=== PATIENT | female | born 1990 | race Hispanic/Latino ===

== ENCOUNTER 2018-06-12 08:19 | Emergency (ER) | payer OTHER ==
--- OUTSIDE RECORDS SUMMARY | 2018-06-12 08:21 | XMS REPORT ---
:1990 Author Organization eClinicalWorks Care Team Providers Name Role Phone Juan Diego Hernandez Provider Role Unavailable Allergies, Adverse Reactions, Alerts Substance Reaction Event Type N.K.D.A. 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
--- NOTE | 2018-06-12 08:56 | ER ---
Nurse's Notes [facility] Name: Halina Escamilla Age: 28 yrs Sex: Female : 1990 Arrival Date: 06/12/2018 Time: 08:22 Bed 25 Private MD: Juan Diego Hernandez Diagnosis: Acute sinusitis Presentation: 06/12 08:35 Presenting complaint: Patient states: Sore throat for 3-4 days, c/o congestion as well. ch no fevers. her son was sick with it first. Transition of care: patient was not received from another setting of care. Onset of symptoms was June 09, 2018. Risk Assessment: Do you want to hurt yourself or someone else? Patient reports no desire to harm self or others. Initial Sepsis Screen: Does the patient meet any 2 criteria? No. Patient's initial sepsis screen is negative. Does the patient have a suspected source of infection? No. Patient's initial sepsis screen is negative. Care prior to arrival: None. 08:35 Method Of Arrival: Ambulatory 08:35 Acuity: RADHA 4 Triage Assessment: 08:36 General: Appears in no apparent distress. uncomfortable, Behavior is cooperative, ch appropriate for age. Pain: Complains of pain in face, right eye, left eye and throat Pain currently is 7 out of 10 on a pain scale. Pain began gradually. EENT: Throat is reddened has patchy exudate has enlarged tonsils bilaterally Reports nasal congestion nasal discharge pain when swallowing. Respiratory: No deficits noted. Derm: No signs and/or symptoms reported regarding the dermatologic system. 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 - Social history:: Smoking status: Patient/guardian denies using tobacco, Patient/guardian denies using alcohol, street drugs. - Ebola Screening: : Patient negative for fever greater than or equal to 101.5 degrees Fahrenheit, and additional compatible Ebola Virus Disease symptoms Patient denies exposure to infectious person Patient denies travel to an Ebola-affected area in the 21 days before illness onset No symptoms or risks identified at this time. Screenin:39 Abuse screen: Denies threats or abuse. Denies injuries from another. Nutritional screening: No deficits noted. Tuberculosis screening: No symptoms or risk factors identified. Fall Risk None identified. Assessment: 08:39 Reassessment: Patient appears in no apparent distress at this time. Respiratory: Airway ch is patent Respiratory effort is even, unlabored, Breath sounds are clear bilaterally. 09:02 Reassessment: Patient appears in no apparent distress at this time. Patient and/or ch family updated on plan of care and expected duration. Pain level reassessed. Patient is alert, oriented x 3, equal unlabored respirations, skin warm/dry/pink. Vital Signs: 08:36 BP 128 / 80; Pulse 97; Resp 16; Temp 98.2; Pulse Ox 99% on R/A; Weight 99.79 kg; Height ch 5 ft. 4 in. (162.56 cm); Pain 7/10; 08:36 Body Mass Index 37.76 (99.79 kg, 162.56 cm) ED Course: 08:22 Patient arrived in ED. ds1 08:22 Juan Diego Hernandez MD is Private Physician. ds1 08:33 Shavon Rankin FNP-C is [facility]. kb 08:33 Jonathan Torrez MD is Attending Physician. kb 08:35 Gretchen Simmons, RADHA is Primary Nurse. ch 08:36 Triage completed. ch 08:36 Arm band placed on left wrist. Patient placed in an exam room, on a stretcher. ch 08:39 No apparent distress. Resting quietly. ch 08:39 Patient has correct armband on for positive identification. Bed in low position. Call light in reach. Side rails up X 1. 08:39 No provider procedures requiring assistance completed. Patient did not have IV access during this emergency room visit. Administered Medications: No medications were administered Outcome: 08:55 Discharge ordered by . kb 09:02 Discharged to home ambulatory, with family. 09:02 Condition: stable 09:02 Discharge instructions given to patient, Instructed on discharge instructions, follow up and referral plans. medication usage, Demonstrated understanding of instructions, follow-up care, medications, Prescriptions given X 1. 09:06 Patient left the ED. Signatures: Shavon Rankin FNP-C FNP-Tad Gretchen Simmons, RN RN ch Valentino, Anne-Marie ds1
--- NOTE | 2018-06-12 08:56 | EDPHYS ---
Physician Documentation [facility] Name: Halina Escamilla Age: 28 yrs Sex: Female : 1990 Arrival Date: 06/12/2018 Time: 08:22 Bed 25 Private MD: Juan Diego Hernandez ED Physician Jonathan Torrez HPI: 06/12 08:51 This 28 yrs old Female presents to ER via Ambulatory with complaints of Sore kb Throat. 08:51 The patient presents with sore throat. The patient describes throat pain as constant. kb Onset: The symptoms/episode began/occurred 3 day(s) ago. Severity of symptoms: At their worst the symptoms were mild, moderate, in the emergency department the symptoms are unchanged. Modifying factors: The symptoms are alleviated by nothing, the symptoms are aggravated by swallowing, Patient's oral intake status: good The patient has had contact with sick. Associated signs and symptoms: Pertinent positives: earache, Sore throat sinus pressure. The patient has not experienced similar symptoms in the past, but family has similar symptoms. The patient has not recently seen a physician. [place]: 08:36 LMP 06/12/2018 ch Historical: - Allergies: 08:36 No Known Allergies; ch - Home Meds: 08:36 None [Active]; ch - PMHx: 08:36 None; ch - PSHx: 08:36 None; ch - Immunization history:: Adult Immunizations up to date, Flu vaccine is not up to date. - Social history:: Smoking status: Patient/guardian denies using tobacco, Patient/guardian denies using alcohol, street drugs. - Ebola Screening: : Patient negative for fever greater than or equal to 101.5 degrees Fahrenheit, and additional compatible Ebola Virus Disease symptoms Patient denies exposure to infectious person Patient denies travel to an Ebola-affected area in the 21 days before illness onset No symptoms or risks identified at this time. ROS: 08:51 Constitutional: Negative for fever, chills, and weight loss, Cardiovascular: Negative kb for chest pain, palpitations, and edema, Respiratory: Negative for shortness of breath, cough, wheezing, and pleuritic chest pain, Abdomen/GI: Negative for abdominal pain, nausea, vomiting, diarrhea, and constipation, MS/Extremity: Negative for injury and deformity, Skin: Negative for injury, rash, and discoloration, Neuro: Negative for headache, weakness, numbness, tingling, and seizure. 08:51 ENT: Positive for ear pain, sinus congestion, sinus pain, sore throat. Exam: 08:51 Constitutional: This is a well developed, well nourished patient who is awake, alert, kb and in no acute distress. Head/Face: Normocephalic, atraumatic. Chest/axilla: Normal chest wall appearance and motion. Nontender with no deformity. No lesions are appreciated. Cardiovascular: Regular rate and rhythm with a normal S1 and S2. No gallops, murmurs, or rubs. Normal PMI, no JVD. No pulse deficits. Respiratory: Lungs have equal breath sounds bilaterally, clear to auscultation and percussion. No rales, rhonchi or wheezes noted. No increased work of breathing, no retractions or nasal flaring. Abdomen/GI: Soft, non-tender, with normal bowel sounds. No distension or tympany. No guarding or rebound. No evidence of tenderness throughout. Skin: Warm, dry with normal turgor. Normal color with no rashes, no lesions, and no evidence of cellulitis. MS/ Extremity: Pulses equal, no cyanosis. Neurovascular intact. Full, normal range of motion. Neuro: Awake and alert, GCS 15, oriented to person, place, time, and situation. Cranial nerves II-XII grossly intact. Motor strength 5/5 in all extremities. Sensory grossly intact. Cerebellar exam normal. Normal gait. 08:51 Head/face: Sinus tenderness, that is moderate, is located over the right ethmoid sinus, left ethmoid sinus, right maxillary sinus and left maxillary sinus. 08:51 ENT: TM's: fluid levels, bilaterally, Posterior pharynx: Airway: normal, no evidence of obstruction, Tonsils: are normal in appearance, Uvula: normal, midline, erythema, that is mild. Vital Signs: 08:36 BP 128 / 80; Pulse 97; Resp 16; Temp 98.2; Pulse Ox 99% on R/A; Weight 99.79 kg; Height ch 5 ft. 4 in. (162.56 cm); Pain 7/10; 08:36 Body Mass Index 37.76 (99.79 kg, 162.56 cm) MDM: 08:34 Patient medically screened. kb 08:51 Data reviewed: vital signs, nurses notes. Data interpreted: Pulse oximetry: on room air kb is 99 %. Interpretation: normal. Counseling: I had a detailed discussion with the patient and/or guardian regarding: the historical points, exam findings, and any diagnostic results supporting the discharge/admit diagnosis, the need for outpatient follow up, a family practitioner, to return to the emergency department if symptoms worsen or persist or if there are any questions or concerns that arise at home. Administered Medications: No medications were administered Disposition: 10:15 Co-signature as Attending Physician, Jonathan Torrez MD. rn Disposition: 06/12/18 08:55 Discharged to Home. Impression: Acute sinusitis. - Condition is Stable. - Discharge Instructions: Sinusitis, Adult, [id number]. - Prescriptions for Prednisone 20 mg Oral Tablet - take 1 tablet by ORAL route once daily for 5 days; 5 tablet. - Medication Reconciliation Form, Thank You Letter, Antibiotic Education, Prescription Opioid Use, Work release form form. - Follow up: Emergency Department; When: As needed; Reason: Worsening of condition. Follow up: Private Physician; When: 2 - 3 days; Reason: Recheck today's complaints, Continuance of care, Re-evaluation by your physician. - Notes: Take an antihistamine with decongestant (zyrtec D, keanu D, or claritin D) and Flonase. Signatures: Shavon Rankin, EARLY CHILDHOOD TEACHER-C EARLY CHILDHOOD TEACHER-Gretchen Prasad RN RN Jonathan Hernandez MD MD awake overnight counselor: (The following items were deleted from the chart) 09:06 08:55 06/12/2018 08:55 Discharged to Home. Impression: Acute sinusitis. Condition is ch Stable. Forms are Medication Reconciliation Form, Thank You Letter, Antibiotic Education, Prescription Opioid Use. Follow up: Emergency Department; When: As needed; Reason: Worsening of condition. Follow up: Private Physician; When: 2 - 3 days; Reason: Recheck today's complaints, Continuance of care, Re-evaluation by your physician. kb
== END 2018-06-12 09:06 | disposition home or self-care (01) ==
LOC: ER 08:19
DX: J01.90 Acute sinusitis, unspecified (principal)
CPT/HCPCS: 99282

== ENCOUNTER 2019-08-01 18:10 | Emergency (ER) | payer OTHER ==
[2019-08-01 18:44] LABS: Urine Blood NEGATIVE (NEG); Urine Glucose NEGATIVE (NEG); Urine Protein NEGATIVE (NEG); Urine Specific Gravity <1.005 (1.005-1.030); Urine pH 6.5 (5.0-7.0)
[2019-08-01 18:45] LABS: Absolute Lymphocytes (CBC) 4.8 K/uL (0.7-4.9); Basophils % 0.4 % (0-1.3); Hematocrit 38.3 % (36.0-45.0); Lymphocytes % 34.6 % (15.3-44.8); MPV 8.8 fL (7.6-11.3)
[2019-08-01 18:51] LABS: Urine Bacteria NONE SEEN /HPF (<20); Urine Culture Reflex Order NOT NEEDED; Urine RBC NONE SEEN /HPF (NONE SEEN)
[2019-08-01 19:01] LABS: ALT/SGPT 91 U/L (12-78); AST/SGOT 47 U/L (15-37); Albumin 3.8 g/dL (3.4-5.0); Alkaline Phosphatase 105 U/L (45-117); BUN Blood Urea Nitrogen 8 mg/dL (7-18); Bicarbonate 28 mmol/L (21-32); Bilirubin Direct 0.1 mg/dL (0-0.2); Bilirubin Total 0.3 mg/dL (0.2-1.0); Glucose Level 89 mg/dL (74-106); Lipase 170 U/L (73-393); Potassium 3.8 mmol/L (3.5-5.1); Protein, Total 7.8 g/dL (6.4-8.2); Sodium Level 143 mmol/L (136-145)
[2019-08-01] MEDS ORDERED: NA CHLORIDE 0.9% 1,000 ML ONE (19:20)
[2019-08-01] MEDS ORDERED: FENTANYL CITR 100 MCG/2 ML ONE (19:20)
--- NOTE | 2019-08-01 20:30 | RAD REPORT ---
EXAM DESCRIPTION: CTAbdomen Pelvis W Contrast - 08/01/2019 8:14 pm CLINICAL HISTORY: Abdominal pain. ABD PAIN COMPARISON: <Comparisons> TECHNIQUE: Biphasic CT imaging of the abdomen and pelvis was performed with 100 ml non-ionic IV cont rast. All CT scans are performed using dose optimization technique as appropriate and may include automated exposure control or mA/KV adjustment according to patient size. FINDINGS: The lung bases are clear. The liver is diffusely fatty. The spleen, pancreas, adrenal glands and kidneys are within normal limi ts. No bowel obstruction, free air, intra-abdominal free fluid or abscess. Trace pelvic free fluid. The a ppendix is normal. No evidence of significant lymphadenopathy. No suspicious bony findings. IMPRESSION: No acute intra-abdominal or pelvic finding. Fatty liver.
--- NOTE | 2019-08-01 20:46 | EDPHYS ---
Physician Documentation [facility] Name: Halina Escamilla Age: 29 yrs Sex: Female : 1990 Arrival Date: 08/01/2019 Time: 18:12 Bed 24 Private MD: ED Physician Larry Durán HPI: 08/01 20:20 This 29 yrs old Female presents to ER via Ambulatory with complaints of snw Shortness Of Breath, Abdominal Pain. 20:20 The patient has shortness of breath at rest. Onset: The symptoms/episode began/occurred snw suddenly, 2 month(s) ago, and became persistent. Duration: The symptoms are continuous. The patient's shortness of breath has no apparent modifying factors. Associated signs and symptoms: Pertinent positives: nausea, Pertinent negatives: fever, vomiting. Severity of symptoms: At their worst the symptoms were moderate. It is unknown whether or not the patient has had similar symptoms in the past. The patient has been recently seen by a physician: the patient's primary care provider, with similar presenting complaints, lab tests were done. 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 - Social history:: Smoking status: Patient/guardian denies using tobacco. - Ebola Screening: : Patient denies exposure to infectious person Patient denies travel to an Ebola-affected area in the 21 days before illness onset. ROS: 20:19 Constitutional: Negative for fever, chills, and weight loss, Eyes: Negative for injury, snw pain, redness, and discharge, ENT: Negative for injury, pain, and discharge, Neck: Negative for injury, pain, and swelling, Cardiovascular: Negative for chest pain, palpitations, and edema, Respiratory: Negative for shortness of breath, cough, wheezing, and pleuritic chest pain, Back: Negative for injury and pain, : Negative for injury, bleeding, discharge, and swelling, MS/Extremity: Negative for injury and deformity, Skin: Negative for injury, rash, and discoloration, Neuro: Negative for headache, weakness, numbness, tingling, and seizure, Psych: Negative for depression, anxiety, suicide ideation, homicidal ideation, and hallucinations. 20:19 Abdomen/GI: Positive for abdominal pain, nausea, Negative for vomiting, diarrhea. Exam: 20:19 Constitutional: This is a well developed, well nourished patient who is awake, alert, snw and in no acute distress. Head/Face: Normocephalic, atraumatic. Eyes: Pupils equal round and reactive to light, extra-ocular motions intact. Lids and lashes normal. Conjunctiva and sclera are non-icteric and not injected. Cornea within normal limits. Periorbital areas with no swelling, redness, or edema. ENT: Nares patent. No nasal discharge, no septal abnormalities noted. Tympanic membranes are normal and external auditory canals are clear. Oropharynx with no redness, swelling, or masses, exudates, or evidence of obstruction, uvula midline. Mucous membranes moist. Neck: Trachea midline, no thyromegaly or masses palpated, and no cervical lymphadenopathy. Supple, full range of motion without nuchal rigidity, or vertebral point tenderness. No Meningismus. Chest/axilla: Normal chest wall appearance and motion. Nontender with no deformity. No lesions are appreciated. Cardiovascular: Regular rate and rhythm with a normal S1 and S2. No gallops, murmurs, or rubs. Normal PMI, no JVD. No pulse deficits. Respiratory: Lungs have equal breath sounds bilaterally, clear to auscultation and percussion. No rales, rhonchi or wheezes noted. No increased work of breathing, no retractions or nasal flaring. Back: No spinal tenderness. No costovertebral tenderness. Full range of motion. Skin: Warm, dry with normal turgor. Normal color with no rashes, no lesions, and no evidence of cellulitis. MS/ Extremity: Pulses equal, no cyanosis. Neurovascular intact. Full, normal range of motion. Neuro: Awake and alert, GCS 15, oriented to person, place, time, and situation. Cranial nerves II-XII grossly intact. Motor strength 5/5 in all extremities. Sensory grossly intact. Cerebellar exam normal. Normal gait. Psych: Awake, alert, with orientation to person, place and time. Behavior, mood, and affect are within normal limits. 20:19 Abdomen/GI: Inspection: obese Bowel sounds: diminished, in all quadrants, Palpation: moderate abdominal tenderness, in the left upper quadrant. Vital Signs: 18:28 BP 108 / 77; Pulse 92; Resp 16; Temp 97.8(O); Pulse Ox 99% ; lt1 20:08 BP 115 / 87; Pulse 90; Resp 18; Pulse Ox 100% on R/A; mg2 21:12 BP 110 / 73; Pulse 89; Resp 18; Temp 98.5; Pulse Ox 100% on R/A; Pain 1/10; mg2 MDM: 18:30 Patient medically screened. snw 20:47 Data reviewed: vital signs, nurses notes. Data interpreted: Pulse oximetry: on room air snw is 100 %. Interpretation: normal. Counseling: I had a detailed discussion with the patient and/or guardian regarding: the historical points, exam findings, and any diagnostic results supporting the discharge/admit diagnosis, the presence of at least one elevated blood pressure reading (>120/80) during this emergency department visit, lab results, radiology results, the need for outpatient follow up, to return to the emergency department if symptoms worsen or persist or if there are any questions or concerns that arise at home. Special discussion: Based on the history and exam findings, there is no indication for further emergent testing or inpatient evaluation. I discussed with the patient/guardian the need to see the rn intern for further evaluation of the symptoms. I discussed with the patient/guardian the need to see the primary care provider for further evaluation of the symptoms. 08/01 18: Order name: Basic Metabolic Panel; Complete Time: 19:02 mg2 08/01 18: Order name: CBC with Diff; Complete Time: 19:00 mg2 08/01 18: Order name: Creatinine for Radiology; Complete Time: 19:02 mg2 08/01 18: Order name: Hepatic Function; Complete Time: 19:02 mg2 08/01 18: Order name: Lipase; Complete Time: 19: mg2 08/01 18: Order name: Urine Microscopic Only; Complete Time: 18:53 snw 08/01 18:29 Order name: IV Saline Lock; Complete Time: 18:31 mg2 08/01 18:29 Order name: Labs collected and sent; Complete Time: 18:31 mg2 08/01 18:31 Order name: CT Abd/Pelvis - PO and IV Contrast; Complete Time: 20:44 snw 08/01 18:39 Order name: Urine Dipstick--Ancillary (enter results); Complete Time: 18:45 eb 08/01 18:40 Order name: Test, Serum; Complete Time: 19:15 mg2 08/01 18:31 Order name: Urine Test (obtain specimen); Complete Time: 18:38 snw 08/01 18:31 Order name: Urine Dipstick-Ancillary (obtain specimen); Complete Time: 18:38 snw Administered Medications: 19:24 Drug: fentaNYL (PF) 50 mcg Route: IVP; Site: right antecubital; mg2 20:54 Follow up: Response: No adverse reaction; Pain is decreased mg2 19:24 Drug: NS 0.9% 1000 ml Route: IV; Rate: 125 ml/hr; Site: right antecubital; mg2 21:11 Follow up: Response: No adverse reaction; IV Status: Order to discontinue infusion; IV mg2 Intake: 250ml 20:54 Drug: ProTONIX 40 mg Route: IVP; Site: right antecubital; mg2 21:11 Follow up: Response: No adverse reaction; Medication administered at discharge. mg2 Disposition: 08/02 15:23 Co-signature as Attending Physician, Larry Durán MD. gs Disposition: 08/01/19 20:45 Discharged to Home. Impression: Upper abdominal pain, unspecified. - Condition is Stable. - Discharge Instructions: Abdominal Pain, Adult, Peptic Ulcer, Rehydration, Adult. - Prescriptions for Carafate 1 gram Oral Tablet - take 1 tablet by ORAL route 4 times per day take on an empty stomach, beginning on waking and last dose at bedtime; 100 tablet. - Medication Reconciliation Form, Thank You Letter, Antibiotic Education, Prescription Opioid Use form. - Follow up: Private Physician; When: 1 - 2 days; Reason: Recheck today's complaints, Continuance of care, Re-evaluation by your physician. Follow up: Emergency Department; When: As needed; Reason: Worsening of condition. Signatures: Dispatcher [employer] EDMS Shanita Kaye, TELEPHONE BETTING CLERK-C TELEPHONE BETTING CLERK-Csnw Jessenia Blank RN RN ss Larry Durán MD MD Kunal Alicea RN RN mg2 Corrections: (The following items were deleted from the chart) 08/01 18:46 18:31 Home Meds: None; mg2 mg2 18:46 18:31 PMHx: None; mg2 mg2 21:13 20:45 08/01/2019 20:45 Discharged to Home. Impression: Upper abdominal pain, mg2 unspecified. Condition is Stable. Forms are Medication Reconciliation Form, Thank You Letter, Antibiotic Education, Prescription Opioid Use. Follow up: Private Physician; When: 1 - 2 days; Reason: Recheck today's complaints, Continuance of care, Re-evaluation by your physician. Follow up: Emergency Department; When: As needed; Reason: Worsening of condition. snw
--- NOTE | 2019-08-01 20:46 | ER ---
Nurse's Notes [facility] Name: Halina Escamilla Age: 29 yrs Sex: Female : 1990 Arrival Date: 08/01/2019 Time: 18:12 Bed 24 Private MD: Diagnosis: Upper abdominal pain, unspecified Presentation: 08/01 18:15 Presenting complaint: Patient states: Episodic LUQ pain that began 1 month ago. Patient ss reports she has been back and forward with her doctor with labs and different prescriptions that do not seem to be helping. Transition of care: patient was not received from another setting of care. Onset of symptoms is unknown. Risk Assessment: Do you want to hurt yourself or someone else? Patient reports no desire to harm self or others. Initial Sepsis Screen: Does the patient have a suspected source of infection? No. Patient's initial sepsis screen is negative. Care prior to arrival: None. 18:15 Acuity: RADHA 3 ss 18:15 Method Of Arrival: Ambulatory ss 18:22 Initial Sepsis Screen: Does the patient meet any 2 criteria? No. Patient's initial mg2 sepsis screen is negative. Triage Assessment: 18:22 General: Appears in no apparent distress. comfortable. Respiratory: the patient has mg2 mild shortness of breath. Respiratory: Onset: The symptoms/episode began/occurred gradually. 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 - Social history:: Smoking status: Patient/guardian denies using tobacco. - Ebola Screening: : Patient denies exposure to infectious person Patient denies travel to an Ebola-affected area in the 21 days before illness onset. Screenin:20 Abuse screen: Denies threats or abuse. Denies injuries from another. Nutritional mg2 screening: No deficits noted. Tuberculosis screening: No symptoms or risk factors identified. Fall Risk None identified. Assessment: 18:20 General: Appears in no apparent distress. comfortable, Behavior is calm, cooperative. mg2 Pain: Complains of pain in abdomen. Neuro: Level of Consciousness is awake, alert, obeys commands, Oriented to person, place, time, situation. Respiratory: Airway is patent Respiratory effort is even, unlabored, Respiratory pattern is regular, symmetrical, Breath sounds are clear. GI: Reports upper abdominal pain. EENT: No signs and/or symptoms were reported regarding the EENT system. Derm: Skin is intact, is healthy with good turgor, Skin is pink, warm \T\ dry. normal. Musculoskeletal: Circulation, motion, and sensation intact. Capillary refill < 3 seconds. 20:08 Reassessment: patient sent to ct scan. mg2 21:00 Reassessment: Patient appears in no apparent distress at this time. Patient and/or mg2 family updated on plan of care and expected duration. Pain level reassessed. Patient is alert, oriented x 3, equal unlabored respirations, skin warm/dry/pink. Cardiovascular: Rhythm is regular. Vital Signs: 18:28 BP 108 / 77; Pulse 92; Resp 16; Temp 97.8(O); Pulse Ox 99% ; lt1 20:08 BP 115 / 87; Pulse 90; Resp 18; Pulse Ox 100% on R/A; mg2 21:12 BP 110 / 73; Pulse 89; Resp 18; Temp 98.5; Pulse Ox 100% on R/A; Pain 1/10; mg2 ED Course: 18:12 Patient arrived in ED. as 18:15 Arm band placed on right wrist. ss 18:17 Triage completed. ss 18:19 Kunal Alicea, RADHA is Primary Nurse. mg2 18:20 Shanita Kaye FNP-C is PHCP. snw 18:20 Larry Durán MD is Attending Physician. snw 18:22 Patient has correct armband on for positive identification. Pulse ox on. NIBP on. Door mg2 closed. Warm blanket given. 18:22 No provider procedures requiring assistance completed. mg2 18:31 Inserted saline lock: 20 gauge in right antecubital area, using aseptic technique. mg2 Blood collected. 18:33 Oral contrast given. sj 20:14 CT Abd/Pelvis - PO and IV Contrast In Process Unspecified. EDMS 21:12 IV discontinued, intact, bleeding controlled, No redness/swelling at site. Pressure mg2 dressing applied. Administered Medications: 19:24 Drug: fentaNYL (PF) 50 mcg Route: IVP; Site: right antecubital; mg2 20:54 Follow up: Response: No adverse reaction; Pain is decreased mg2 19:24 Drug: NS 0.9% 1000 ml Route: IV; Rate: 125 ml/hr; Site: right antecubital; mg2 21:11 Follow up: Response: No adverse reaction; IV Status: Order to discontinue infusion; IV mg2 Intake: 250ml 20:54 Drug: ProTONIX 40 mg Route: IVP; Site: right antecubital; mg2 21:11 Follow up: Response: No adverse reaction; Medication administered at discharge. mg2 Intake: 21:11 IV: 250ml; Total: 250ml. mg2 Outcome: 20:45 Discharge ordered by . snw 21:13 Discharged to home ambulatory. mg2 21:13 Condition: stable 21:13 Discharge instructions given to patient, Instructed on discharge instructions, follow up and referral plans. medication usage, Demonstrated understanding of instructions, follow-up care, medications, Prescriptions given X 1. 21:13 Patient left the ED. mg2 Signatures: Dispatcher [employer] EDMS Shanita Kaye, MATERIAL WORKER-C MATERIAL WORKER-Jennifer Khan Amelia as Smirch, Shelby, RN RN ss Kunal Alicea RN RN mg2 Lackey, Sheree 1 Corrections: (The following items were deleted from the chart) 18:46 18:31 Home Meds: None; mg2 mg2 18:46 18:31 PMHx: None; mg2 mg2
[2019-08-01] MEDS ORDERED: PANTOPRAZOLE 40 MG INJ ONE (20:50)
[2019-08-01 21:24] VITALS: O2SAT 100
[2019-08-01 21:26] VITALS: BP 110/73; TEMP 98.5
== END 2019-08-01 21:13 | disposition home or self-care (01) ==
LOC: ER 18:10
DX: R10.10 Upper abdominal pain, unspecified (principal); I10 Essential (primary) hypertension; E78.5 Hyperlipidemia, unspecified; E11.9 Type 2 diabetes mellitus without complications
CPT/HCPCS: 96361; 85025; 80048; 36415; 84703; 80076; 83690; 74177; 96375; 96374; 99284; Q9967; C9113; J3010; J7030; 81003; 81015

== ENCOUNTER 2021-04-26 12:33 | Inpatient (IN) | payer BC, OTHER ==
--- OUTSIDE RECORDS SUMMARY | 2021-04-26 12:35 | XMS REPORT | Continuity of Care Document ---
:1990 Author Organization [facility] t Address [address] [place] [address] Care Team Providers Name Role Phone Unavailable Unavailable Unavailable Problems Condition Condition Condition Status Onset Resolution Last Treating Co mments Source Name Details Category Date Date Treatment Clinician Date Body mass Body mass Problem Active [facility] index index [facility] - (BMI) of (BMI) of Memori a 36.0-36.9 36.0-36.9 l in adult in adult Outpat i ent Clinics Sleep Sleep Problem Active [facility] disturbanc disturbanc Malena kes - e e [facility] Essential Essential Problem Active [facility] hypertensi hypertensi Malena kes - on on [facility] Diabetes 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 Medications Ordered Filled Start Stop Current Ordering Indication Dosage Frequency Signature Comments Components Source Medication Medication Date Date Medication? Clinician (SIG) Name Name Gentamicin Gentamicin Yes Juan Diego [address] [facility] Sulfate Sulfate 06-18 David into [facility] - 00:00: affected [facility] 00 eye l [facility] Fluticasone Fluticasone Yes Juan Diego [address] [facility] Propionate Propionate 06-18 David each Malena kes - 00:00: nostril [facility]oria 00 l [facility] Ketotifen Ketotifen Yes Juan Diego [address] [facility] Fumarate Fumarate 06-18 David into [facility] - 00:00: affected [facility]oria 00 eye l Outpati ent Clinics GNP GNP 2018- No Juan Diego [address] [facility] Loratadine- Loratadine- 06-18 David as needed [facility] - D 12HR D 12HR 00:00: 00:00 Memoria 00 :00 l Outpati ent Clinics Lisinopril Lisinopril 2017- Yes Juan Diego [address] [facility] -20 David [facility] - 00:00: Memoria 00 l Outpati ent Clinics Metformin Metformin Yes Juan Diego [address] [facility] HCl HCl David with meals [facility] - [facility] Procedures This patient has no known procedures. Encounters Start End Encounter Admission Attending Care Care Encounter Source Date/Time Date/Time Type Type Clinicians Facility Department ID 2018-06-18 2018-06-18 Outpatient Mir Jasso [id number] [facility] 09:45:00 09:45:00 [facility] Medicine Outpati ent Clinics 2018-06-17 2018-06-17 Outpatient Mir Jasso [id number] [facility] 09:12:00 09:12:00 [facility] Outpati ent Clinics 2018-05-28 2018-05-28 Outpatient Mir Jasso [id number] [facility] 09:15:00 09:15:00 [facility] Results This patient has no known results.
[2021-04-26 13:37] LABS: Urine Blood Negative (Negative); Urine Glucose Negative (Negative); Urine Protein 1+ (Negative); Urine Specific Gravity 1.025 (1.005-1.030)
[2021-04-26 13:56] LABS: Urine Specific Gravity/Preg 1.025 (1.005-1.030)
[2021-04-26 14:04] LABS: Absolute Lymphocytes (CBC) 1.5 K/uL (0.7-4.9); Basophils % 0.5 % (0-1.3); Hematocrit 43.1 % (36.0-45.0); MPV 9.1 fL (7.6-11.3); RBC Red Blood Cell Count 5.52 M/uL (3.86-4.86)
[2021-04-26] MEDS ORDERED: dexAMETHasone 10 MG/ML VIAL ONE (14:04)
[2021-04-26] MEDS ORDERED: NA CHLORIDE 0.9% 1,000 ML ONE (14:08)
[2021-04-26 14:15] LABS: Protime INR 1.1
[2021-04-26 14:23] LABS: ALT/SGPT 77 U/L (12-78); AST/SGOT 29 U/L (15-37); Albumin 2.9 g/dL (3.4-5.0); Alkaline Phosphatase 80 U/L (45-117); BUN Blood Urea Nitrogen 9 mg/dL (7-18); Bicarbonate 22 mmol/L (21-32); Bilirubin Direct 0.2 mg/dL (0-0.2); Bilirubin Total 0.5 mg/dL (0.2-1.0); Ferritin 158.3 ng/mL (8-388); Glucose Level 219 mg/dL (74-106); Magnesium 2.3 mg/dL (1.8-2.4); NT PRO-BNP 16 pg/mL (<125); Potassium 3.6 mmol/L (3.5-5.1); Protein, Total 7.8 g/dL (6.4-8.2); Sodium Level 141 mmol/L (136-145); Troponin (Emerg Dept Use Only) < 0.02 ng/mL (0.0-0.045)
--- NOTE | 2021-04-26 14:37 | RAD REPORT ---
EXAM DESCRIPTION: RAD - Chest Single View - 04/26/2021 2:29 pm CLINICAL HISTORY: COUGH COMPARISON: Chest Pa And Lat (2 Views) dated 05/19/2019 FINDINGS: Moderate bilateral patchy airspace disease scattered throughout the lungs. The heart size is within normal limits.No acute osseous abnormality. No significant pleural effusions or pneumothora x. IMPRESSION: Patchy airspace disease bilaterally concerning for multifocal pneumonia, including Covid -19.
--- NOTE | 2021-04-26 15:01 | RAD REPORT ---
EXAM DESCRIPTION: CT - Chest For Pe Angio - 04/26/2021 2:50 pm CLINICAL HISTORY: SOB COMPARISON: No comparisons FINDINGS: Chest Wall: No suspicious thyroid nodules or pathologic lymphadenopathy. Lungs: Widespread bilateral nodular and consolidative airspace disease. The consolidation is most not able within the dependent aspect of the lungs. Pulmonary arteries: Limited by motion. No definite pulmonary emboli identified. Pleura: No significant effusions or pneumothorax. Mediastinum/jessie: No pathologic lymphadenopathy. Heart: No significant pericardial effusion. Mild enlarged cardiac silhouette. Upper abdomen: Hepatic steatosis. Bones: No acute abnormality. IMPRESSION: 1. Limited by respiratory motion but no convincing evidence of pulmonary emboli. 2. Moderate bilateral airspace disease concerning for multifocal pneumonia, including Covid-19.
--- NOTE | 2021-04-26 15:08 | ER ---
Nurse's Notes [facility] Name: Halina Escamilla Age: 31 yrs Sex: Female : 1990 Arrival Date: 04/26/2021 Time: 12:34 Bed 28 Private MD: Diagnosis: Pneumonia due to SARS-associated coronavirus;Hypoxemia Presentation: 04/26 12:37 Chief complaint: EMS states: Was called out to Pt doctors office due to O2 saturation vg1 at 85% RA; pt is COVID + Pt was given two treatments of Albuterol with dexamethasone 4mg. Pt is currently on 2L NC at 92%. Coronavirus screen: Client denies travel out of the [place] in the last 14 days. Client presents with at least one sign or symptom that may indicate coronavirus-19. Standard/surgical mask placed on the client. Client reports previous positive COVID test result. Date of collection: April 14, 2021. Ebola Screen: Patient negative for fever greater than or equal to 101.5 degrees Fahrenheit, and additional compatible Ebola Virus Disease symptoms. Initial Sepsis Screen: Does the patient meet any 2 criteria? RR > 20 per min. HR > 90 bpm. Yes Does the patient have a suspected source of infection? Yes:. Risk Assessment: Do you want to hurt yourself or someone else? Patient reports no desire to harm self or others. Onset of symptoms was April 14, 2021. 12:37 Method Of Arrival: EMS: [facility] vg1 12:37 Acuity: RADHA 3 vg1 Triage Assessment: 12:49 General: Appears in no apparent distress. uncomfortable, Behavior is calm, cooperative. vg1 Pain: Complains of pain in head Pain currently is 6 out of 10 on a pain scale. Pain began about a week ago. EENT: No signs and/or symptoms were reported regarding the EENT system. Neuro: Level of Consciousness is awake, alert, obeys commands, Oriented to person, place, time, situation. Cardiovascular: Patient's skin is warm and dry. Respiratory: Reports shortness of breath on exertion cough that is productive, Airway is patent Respiratory effort is even, labored, Respiratory pattern is tachypnea Breath sounds are coarse in right posterior middle lobe. GI: No signs and/or symptoms were reported involving the gastrointestinal system. : No signs and/or symptoms were reported regarding the genitourinary system. Derm: Skin is intact, is healthy with good turgor. Musculoskeletal: Circulation, motion, and sensation intact. 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 - Social history:: Smoking status: Patient denies any tobacco usage or history of. Screenin:51 Abuse screen: Denies threats or abuse. Nutritional screening: No deficits noted. vg1 Tuberculosis screening: No symptoms or risk factors identified. Fall Risk No fall in past 12 months (0 pts). No secondary diagnosis (0 pts). IV access (20 points). Ambulatory Aid- None/Bed Rest/Nurse Assist (0 pts). Gait- Normal/Bed Rest/Wheelchair (0 pts) Mental Status- Oriented to own ability (0 pts). Total Denney Fall Scale indicates No Risk (0-24 pts). Assessment: 12:54 Reassessment: See Triage. vg1 14:01 Reassessment: Patient appears in no apparent distress at this time. No changes from vg1 previously documented assessment. Patient and/or family updated on plan of care and expected duration. Pain level reassessed. Patient is alert, oriented x 3, equal unlabored respirations, skin warm/dry/pink. 14:57 Reassessment: Patient appears in no apparent distress at this time. No changes from vg1 previously documented assessment. Patient and/or family updated on plan of care and expected duration. Pain level reassessed. Patient is alert, oriented x 3, equal unlabored respirations, skin warm/dry/pink. 15:13 Reassessment: Hospitalist at bedside. vg1 Vital Signs: 12:37 BP 126 / 98; Pulse 112; Resp 22; Temp 97.9; Pulse Ox 93% on 2 lpm NC; Weight 92.99 kg; vg1 Height 5 ft. 2 in. (157.48 cm); Pain 6/10; 14:01 BP 131 / 90; Pulse 108; Resp 26; Pulse Ox 93% on 2 lpm NC; vg1 14:31 BP 121 / 74; Pulse 100; Resp 20; Pulse Ox 94% on 2 lpm NC; vg1 14:57 BP 129 / 78; Pulse 104; Resp 24; Pulse Ox 98% on 2 lpm NC; vg1 12:37 Body Mass Index 37.49 (92.99 kg, 157.48 cm) vg1 ED Course: 12:34 Patient arrived in ED. vg1 12:41 Devyn Cruz PA is PHCP. cp 12:41 Jonathan Torrez MD is Attending Physician. cp 12:49 Triage completed. vg1 12:49 Arm band placed on. vg1 12:51 Patient has correct armband on for positive identification. Bed in low position. Call vg1 light in reach. Side rails up X 1. 12:54 Vida Meyer, RN is Primary Nurse. vg1 13:39 Initial lab(s) drawn, by me, sent to lab. EKG done, COVID swab sent to lab. Inserted vg1 saline lock: 20 gauge in left antecubital area, using aseptic technique. Blood collected. 14:29 XRAY Chest (1 view) In Process Unspecified. EDMS 14:51 CT Chest For PE Angio In Process Unspecified. EDMS 15:05 Gato Escamilla is Hospitalizing Provider. cp 17:02 Report given to Mary Anne GARCIA. vg1 17:02 No provider procedures requiring assistance completed. Patient admitted, IV remains in vg1 place. 19:16 Primary Nurse role handed off by Vida Meyer, RN mw2 Administered Medications: 14:00 Drug: NS 0.9% 1000 ml Route: IV; Rate: 1000 ml/hr; Site: left antecubital; vg1 14:01 Drug: Decadron - Dexamethasone 6 mg Route: IVP; Site: left antecubital; vg1 15:18 Follow up: Response: No adverse reaction vg1 Outcome: 15:07 Decision to Hospitalize by Provider. cp 17:02 Admitted to ER Hold. Please see [facility] for further documentation. vg1 17:02 Condition: stable 17:02 Instructed on the need for admit. 04/30 13:01 Patient left the ED. eb Signatures: Dispatcher [employer] EDMS Devyn Cruz PA PA cp Jessica Burr mw2 Lore Paige Victoria, RN RN vg1
--- NOTE | 2021-04-26 15:08 | EDPHYS ---
Physician Documentation [facility] Name: Halina Escamilla Age: 31 yrs Sex: Female : 1990 Arrival Date: 04/26/2021 Time: 12:34 Bed 28 Private MD: ED Physician Jonathan Torrez HPI: 04/26 13:05 This 31 yrs old Female presents to ER via EMS with complaints of Covid + cp Shortness of Breath. 13:05 The patient has shortness of breath at rest. Onset: The symptoms/episode began/occurred cp gradually, and became worse today. 13:05 Duration: The symptoms are continuous, and are steadily getting worse. The patient or cp guardian reports cough, that is constant. Patient reports testing positive for COVID-19 2 weeks ago. RN ENDOSCOPY: 12:55 LMP 04/17/2021 vg1 Historical: - Allergies: 12:49 No Known Allergies; vg1 - PMHx: 12:49 Diabetes - NIDDM; Hyperlipidemia; Hypertension; vg1 - Immunization history:: Adult Immunizations up to date. - Social history:: Smoking status: Patient denies any tobacco usage or history of. ROS: 13:10 Constitutional: Negative for body aches, chills, fever, poor PO intake. cp 13:10 Eyes: Negative for injury, pain, redness, and discharge. cp 13:10 ENT: Negative for ear pain, sore throat, difficulty swallowing, difficulty handling secretions. 13:10 Cardiovascular: Negative for chest pain, edema, palpitations. 13:10 Respiratory: Positive for cough, with no reported sputum, shortness of breath. 13:10 Abdomen/GI: Negative for abdominal pain, nausea, vomiting, and diarrhea. 13:10 Neuro: Positive for headache, Negative for altered mental status, syncope, weakness. 13:10 All other systems are negative. Exam: 13:15 Constitutional: The patient appears alert, awake, non-diaphoretic, non-toxic, well cp developed, well nourished, obese, in obvious distress, mildly distressed. 13:15 Head/Face: Normocephalic, atraumatic. cp 13:15 Eyes: Periorbital structures: appear normal, Conjunctiva: normal, no exudate, no injection, Sclera: no appreciated abnormality, Lids and lashes: appear normal, bilaterally. 13:15 ENT: External ear(s): are unremarkable, Nose: is normal, Mouth: Lips: moist, Oral mucosa: pink and intact, moist, Posterior pharynx: Airway: no evidence of obstruction, patent. 13:15 Neck: ROM/movement: is normal, is supple, no meningismus, no nuchal rigidity. 13:15 Chest/axilla: Inspection: normal, Palpation: is normal, no crepitus, no tenderness. 13:15 Cardiovascular: Rate: normal, Rhythm: regular, Edema: is not appreciated, JVD: is not appreciated. 13:15 Respiratory: mild respiratory distress is noted, Respirations: labored breathing, that is mild, intercostal retractions, are absent, Breath sounds: bronchial sounds, that are moderate, are heard diffusely, stridor, is not appreciated, wheezing: is not appreciated. 13:15 Abdomen/GI: Inspection: abdomen appears normal, Palpation: abdomen is soft and non-tender, in all quadrants. 13:15 Back: pain, is absent, ROM is normal. 13:15 Neuro: Orientation: to person, place \T\ time. Mentation: is normal, Motor: moves all fours, strength is normal. 13:35 ECG was reviewed by the Attending Physician. cp Vital Signs: 12:37 BP 126 / 98; Pulse 112; Resp 22; Temp 97.9; Pulse Ox 93% on 2 lpm NC; Weight 92.99 kg; vg1 Height 5 ft. 2 in. (157.48 cm); Pain 6/10; 14:01 BP 131 / 90; Pulse 108; Resp 26; Pulse Ox 93% on 2 lpm NC; vg1 14:31 BP 121 / 74; Pulse 100; Resp 20; Pulse Ox 94% on 2 lpm NC; vg1 14:57 BP 129 / 78; Pulse 104; Resp 24; Pulse Ox 98% on 2 lpm NC; vg1 12:37 Body Mass Index 37.49 (92.99 kg, 157.48 cm) vg1 MDM: 12:45 Patient medically screened. cp 13:30 Differential diagnosis: bronchitis, flu, pneumonia, Pneumothorax pulmonary edema, cp Pulmonary Embolism Sepsis. 15:06 Data reviewed: vital signs, nurses notes, lab test result(s), EKG, radiologic studies, cp CT scan, plain films. 15:06 Test interpretation: by ED physician or midlevel provider: ECG, plain radiologic cp studies. Counseling: I had a detailed discussion with the patient and/or guardian regarding: the historical points, exam findings, and any diagnostic results supporting the discharge/admit diagnosis, lab results, radiology results, the need for further work-up and treatment in the hospital. Response to treatment: the patient's symptoms have mildly improved after treatment. Physician consultation: Gato Escamilla was contacted at 15:06, regarding admission, to the telemetry unit. patient's condition. 04/26 12:59 Order name: Basic Metabolic Panel cp 04/26 12:59 Order name: CBC with Diff cp 04/26 12:59 Order name: LFT's cp 04/26 12:59 Order name: Magnesium; Complete Time: 14:30 cp 04/26 12:59 Order name: NT PRO-BNP; Complete Time: 14:30 cp 04/26 12:59 Order name: PT-INR; Complete Time: 14:30 cp 04/26 12:59 Order name: Troponin (emerg Dept Use Only); Complete Time: 14:30 cp 04/26 12:59 Order name: CRP; Complete Time: 14:30 cp 04/26 12:59 Order name: Ferritin; Complete Time: 14:30 cp 04/26 12:59 Order name: D-Dimer; Complete Time: 14:30 cp 04/26 12:59 Order name: Basic Metabolic Panel; Complete Time: 14:30 EDMS 04/26 12:59 Order name: CBC with Automated Diff; Complete Time: 14:30 EDMS 04/26 12:59 Order name: Liver (Hepatic) Function; Complete Time: 14:30 EDMS 04/26 13:36 Order name: Urine --Ancillary (enter results); Complete Time: 14:30 mt 04/26 13:37 Order name: Urine Dipstick-Ancillary; Complete Time: 14:30 EDMS 04/26 16:05 Order name: SARS-COV-2 RT PCR EDMI 04/26 18:13 Order name: Glucose, Ancillary Testing EDMI 04/26 19:16 Order name: Lipid Profile EDMI 04/26 19:32 Order name: Procalcitonin EDMI 04/26 19:32 Order name: Glucose, Ancillary Testing EDMI 04/26 22:40 Order name: Lactate EDMI 04/27 06:49 Order name: CBC with Automated Diff EDMS 04/27 06:50 Order name: Comprehensive Metabolic Panel EDMS 04/27 06:50 Order name: C-Reactive Protein EDMS 04/27 06:50 Order name: Magnesium EDMS 04/27 06:50 Order name: Ferritin EDMS 04/27 08:53 Order name: Manual Differential EDMS 04/27 09:01 Order name: Glucose, Ancillary Testing EDMS 04/27 12:02 Order name: Glucose, Ancillary Testing EDMS 04/26 12:59 Order name: XRAY Chest (1 view); Complete Time: 15:05 cp 04/26 12:59 Order name: EKG; Complete Time: 13:00 cp 04/26 14:31 Order name: CT Chest For PE Angio; Complete Time: 15:05 cp 04/27 16:12 Order name: Glucose, Ancillary Testing EDMS 04/27 19:52 Order name: Glucose, Ancillary Testing EDMS 04/28 04:09 Order name: CBC with Automated Diff EDMS 04/28 04:59 Order name: Comprehensive Metabolic Panel EDMS 04/28 04:59 Order name: C-Reactive Protein EDMS 04/28 04:59 Order name: Magnesium EDMS 04/28 04:59 Order name: Ferritin EDMS 04/28 07:52 Order name: Glucose, Ancillary Testing EDMS 04/28 10:32 Order name: C-Reactive Protein EDMS 04/28 10:32 Order name: Ferritin EDMS / 11:22 Order name: Glucose, Ancillary Testing EDMS 04/28 16:05 Order name: Hemoglobin A1c EDMS 04/28 16:22 Order name: Glucose, Ancillary Testing EDMS 04/28 20:56 Order name: Glucose, Ancillary Testing EDMS 04/29 06:19 Order name: C-Reactive Protein EDMS 04/29 06:19 Order name: Ferritin EDMS 04/29 07:55 Order name: Glucose, Ancillary Testing EDMS 04/29 12:08 Order name: Glucose, Ancillary Testing EDMS 04/29 16:51 Order name: Glucose, Ancillary Testing EDMS 04/29 21:16 Order name: Glucose, Ancillary Testing EDMS 04/30 05:45 Order name: CBC with Automated Diff EDMS 04/30 06:27 Order name: Basic Metabolic Panel EDMS 04/30 06:27 Order name: C-Reactive Protein EDMS 04/30 06:27 Order name: Ferritin EDMI 04/30 06:33 Order name: RAD EDMI 04/30 08:04 Order name: Glucose, Ancillary Testing [facility] 04/30 11:57 Order name: Glucose, Ancillary Testing [facility] 04/26 12:59 Order name: Cardiac monitoring; Complete Time: 13:39 cp 04/26 12:59 Order name: EKG - Nurse/Tech; Complete Time: 13:39 cp 04/26 12:59 Order name: IV Saline Lock; Complete Time: 13:39 cp 04/26 12:59 Order name: Labs collected and sent; Complete Time: 13:39 cp 04/26 12:59 Order name: O2 Per Protocol; Complete Time: 13:12 cp 04/26 12:59 Order name: O2 Sat Monitoring; Complete Time: 13:12 cp 04/26 15:19 Order name: Diet Ada 1800 James; Complete Time: 15:20 vg1 EC:35 Rate is 110 beats/min. Rhythm is regular. KS interval is normal. QRS interval is cp normal. QT interval is normal. T waves are Inverted in lead aVR. Interpreted by me. Reviewed by me. Administered Medications: 14:00 Drug: NS 0.9% 1000 ml Route: IV; Rate: 1000 ml/hr; Site: left antecubital; vg1 14:01 Drug: Decadron - Dexamethasone 6 mg Route: IVP; Site: left antecubital; vg1 15:18 Follow up: Response: No adverse reaction vg1 Disposition: 04/30 15:04 Co-signature as Attending Physician, Jonathan Torrez MD. rn Disposition Summary: 04/26/21 15:07 Hospitalization Ordered Hospitalization Status: Inpatient Admission cp Provider: Gato Escamilla cp Condition: Fair cp Problem: new cp Symptoms: have improved cp Bed/Room Type: Standard cp Location: [facility] ER HOLD(04/26/21 16:21) Room Assignment: ERHOLD-(04/26/21 16:21) Diagnosis - Pneumonia due to SARS-associated coronavirus cp - Hypoxemia cp Forms: - Medication Reconciliation Form cp - SBAR form cp Signatures: Dispatcher MedHoJonathan Davis MD MD rn Smirch, Shelby, RN RN ss Devyn Cruz PA PA cp Garcia, Victoria RN RN vg1 Corrections: (The following items were deleted from the chart) 04/26 14:46 13:00 CORONAVIRUS+MR.LAB.BRZ ordered. EDMS EDMS 16: 15:07 Telemetry/MedSurg (Inpatient) cp ss 16: 15:07 cp ss 04/28 00:05 04/26 13:10 Neuro: Negative for altered mental status, headache, syncope, weakness, cp cp
--- NOTE | 2021-04-26 16:32 | P.HP ---
Certification for Inpatient Patient admitted to: Inpatient (home oxygen) With expected LOS: <2 Midnights Patient will require the following post-hospital care: Other (home oxygen) Practitioner: I am a practitioner with admitting privileges, knowledge of patient current condition, hospital course, and medical plan of care. Services: Services provided to patient in accordance with Admission requirements found in Title 42 Section 412.3 of the Code of Federal Regulations Patient History Date of Service: 04/26/21 Primary Care Provider: Dr. Velazquez Reason for admission: dyspnea History of Present Illness: This is a 31 y/o F with HTN, HLD, T2DM, non-compliant, who presents today with 2 weeks of SOB. She was diagnosed with covid-19 on April 14 and was given antibiotics and steroids which she finished last week. She c/o worsening SOB with exertion. She reports minimal relief with albuterol inhaler. She was sent to ER today from PCP office due to oxygen saturation 85%. Her was diagnosed with covid-19 around the same time and is now in the ICU at [facility]. She is not vaccinated. She c/o productive cough and chills. Denies any nausea, vomiting, fever, chest pain. WC 10, CRP 59.30, ferritin 158.3 CTA: 1. Limited by respiratory motion but no convincing evidence of pulmonary emboli. 2. Moderate bilateral airspace disease concerning for multifocal pneumonia, including Covid-19. CXR: Moderate bilateral patchy airspace disease scattered throughout the lungs. The heart size is within normal limits.No acute osseous abnormality. No significant pleural effusions or pneumothorax. IMPRESSION: Patchy airspace disease bilaterally concerning for multifocal pneumonia, including Covid-19. - Past Medical/Surgical History -: HTN -: DM -: HLD Past Surgical History: Patient denies surgical history Psychosocial/ Personal History: lives at home with and son - Family History Mother -: Diabetes Father -: Hypertension, Liver disease - Social History Smoking Status: Former smoker Alcohol use: No CD- Drugs: No Caffeine use: Yes Physical Examination - Physical Exam General: Alert, In no apparent distress, Oriented x3, Cooperative HEENT: Atraumatic, Mucous membr. moist/pink Neck: Supple Respiratory: Crackles/rales, Other (currently on 2L nasal cannula) Cardiovascular: Normal S1 S2, Other (mildly tachycardic) Capillary refill: <2 Seconds Gastrointestinal: Normal bowel sounds, No tenderness, No guarding Musculoskeletal: No swelling, No tenderness Integumentary: No rashes, No breakdown Neurological: Normal speech, Normal tone, Normal affect - Studies Laboratory Data (last 24 hrs) 04/26/21 13:36: PT 12.7 H, INR 1.10 04/26/21 13:36: WBC 10.00, Hgb 14.1, Hct 43.1, Plt Count 475 H 04/26/21 13:36: Sodium 141, Potassium 3.6, BUN 9, Creatinine 0.60, Glucose 219 H, Magnesium 2.3, Total Bilirubin 0.5, AST 29, ALT 77, Alkaline Phosphatase 80 Assessment and Plan - Plan impression: dyspnea, cough secondary to bilateral covid pneumonia with hypoxia, unvaccinated HTN HLD NIDDM plan: dyspnea, cough secondary to bilateral covid pneumonia with hypoxia, unvaccinated : pt will be admitted for further evaluation and management. CT scan unremarkable for PE. imaging consistent with covid pneumonia. trial IV solu- medrol, can consider other meds if condition worsens. tessalon perles prn. start vitamin supplementation including zinc, thiamine, vit d, vit C, pepcid. will continue to reassess. will consult pulm to further evaluate. await further recs. will consult respiratory and social service manager to discharge patient with home oxygen. anticipate improvement over the next 24-48h. HTN: pt does not take home meds. monitor BP closely. HLD: lipid panel ordered. NIDDM: a1c ordered. will start metformin 500 mg. accuchecks and SSI. code: full VTE: lovenox dispo: anticipate dc home in ~24-48h with home oxygen Discharge Plan: Home Plan to discharge in: 48 Hours - Advance Directives Does patient have a Living Will: No Does patient have a Durable POA for Healthcare: No - Code Status/Comfort Care Code Status Assessed: Yes (full)
[2021-04-26] MEDS ORDERED: BENZONATATE 100 MG CAP PO PRN (17:29)
[2021-04-26] MEDS ORDERED: ONDANSETRON 4 MG/2 ML VIAL IV PRN (17:29)
[2021-04-26] MEDS: ASCORBIC ACID 500 MG TABLET PO SCH ×2 (17:29→21:00)
[2021-04-26] MEDS ORDERED: ACETAMINOPHEN 500 MG TAB PO PRN (17:29)
[2021-04-26] MEDS ORDERED: ALBUTEROL 2.5 MG/3 ML NEB SOL NEB PRN (17:29)
[2021-04-26] MEDS: INSULIN -REGULAR HUMAN 50 UNIT/0.5 ML ML SQ SCH ×2 (17:29→21:01)
[2021-04-26] MEDS ORDERED: METHYLPRED NA SUC 60 MG in NA CHLORIDE 0.9% 100 ML IV SCH (17:29)
[2021-04-26] MEDS: ENOXAPARIN 40 MG/0.4 ML SQ SCH (18:00)
[2021-04-26] MEDS: METHYLPREDNISOLONE 125 MG INJ IV SCH (18:00)
[2021-04-26] MEDS ORDERED: INSULIN -REGULAR HUMAN 50 UNIT/0.5 ML ML ONE ×2 (18:27→20:33)
[2021-04-26] MEDS ORDERED: METHYLPREDNISOLONE 125 MG INJ ONE ×2 (18:28→20:36)
[2021-04-26] MEDS ORDERED: ENOXAPARIN 40 MG/0.4 ML SQ ONE (18:28)
[2021-04-26] MEDS ORDERED: ASCORBIC ACID 500 MG TABLET ONE ×2 (18:28→20:37)
[2021-04-26] MEDS ORDERED: IPRATROPIUM BROM 0.5MG/2.5ML ONE (19:50)
[2021-04-26] MEDS ORDERED: IPRATROPIUM BROM 0.5MG/2.5ML NEB SCH (20:00)
[2021-04-26] MEDS ORDERED: FAMOTIDINE 20 MG TAB ONE (20:37)
[2021-04-26] MEDS ORDERED: THIAMINE HCL 100 MG TABLET ONE (20:37)
[2021-04-26] MEDS ORDERED: BENZONATATE 100 MG CAP PO ONE (20:37)
[2021-04-26] MEDS: THIAMINE HCL 100 MG TABLET PO SCH (21:00)
[2021-04-26] MEDS: MELATONIN 5 MG TABLET PO SCH (21:00)
[2021-04-26] MEDS: FAMOTIDINE 20 MG TAB PO SCH (21:00)
[2021-04-26] MEDS ORDERED: MELATONIN 5 MG TABLET PO ONE (21:07)
[2021-04-27] MEDS: METHYLPREDNISOLONE 125 MG INJ IV SCH ×3 (00:33→17:00)
[2021-04-27] MEDS ORDERED: ACETAMINOPHEN 500 MG TAB ONE (01:05)
[2021-04-27 06:17] LABS: Absolute Lymphocytes (CBC) 1.5 K/uL (0.7-4.9); Basophils % 0.6 % (0-1.3); Hematocrit 40.9 % (36.0-45.0); Lymphocytes % 18.7 % (15.3-44.8); MPV 8.9 fL (7.6-11.3); RBC Red Blood Cell Count 5.18 M/uL (3.86-4.86)
[2021-04-27 06:37] LABS: ALT/SGPT 65 U/L (12-78); AST/SGOT 22 U/L (15-37); Albumin 2.5 g/dL (3.4-5.0); Alkaline Phosphatase 77 U/L (45-117); BUN Blood Urea Nitrogen 11 mg/dL (7-18); Bicarbonate 22 mmol/L (21-32); Bilirubin Total 0.4 mg/dL (0.2-1.0); Ferritin 127.4 ng/mL (8-388); Glucose Level 247 mg/dL (74-106); Magnesium 2.3 mg/dL (1.8-2.4); Potassium 4.3 mmol/L (3.5-5.1); Protein, Total 7.1 g/dL (6.4-8.2); Sodium Level 141 mmol/L (136-145)
[2021-04-27 08:53] LABS: Blood Morphology Comment NOT SEEN (NOT SEEN); Platelet Estimate ADEQ
[2021-04-27] MEDS ORDERED: ASCORBIC ACID 500 MG TABLET ONE ×4 (09:28→20:36)
[2021-04-27] MEDS ORDERED: ZINC SULFATE 220 MG CAP ONE (09:28)
[2021-04-27] MEDS ORDERED: VITAMIN D 1000 UNIT TAB ONE ×2 (09:28→10:01)
[2021-04-27] MEDS ORDERED: METFORMIN HCL 500 MG TAB ONE (09:28)
[2021-04-27] MEDS ORDERED: METHYLPREDNISOLONE 40 MG INJ ONE ×2 (09:29→17:14)
[2021-04-27] MEDS ORDERED: ENOXAPARIN 40 MG/0.4 ML SQ ONE (09:29)
[2021-04-27] MEDS ORDERED: FAMOTIDINE 20 MG TAB ONE ×2 (09:29→20:38)
[2021-04-27] MEDS ORDERED: INSULIN -REGULAR HUMAN 50 UNIT/0.5 ML ML ONE ×3 (09:31→17:15)
[2021-04-27] MEDS: THIAMINE HCL 100 MG TABLET PO SCH ×2 (09:36→21:00)
[2021-04-27] MEDS: ZINC SULFATE 220 MG CAP PO SCH (09:36)
[2021-04-27] MEDS: ENOXAPARIN 40 MG/0.4 ML SQ SCH (09:36)
[2021-04-27] MEDS: VITAMIN D 1000 UNIT TAB PO SCH (09:36)
[2021-04-27] MEDS: ASCORBIC ACID 500 MG TABLET PO SCH ×4 (09:37→21:00)
[2021-04-27] MEDS: FAMOTIDINE 20 MG TAB PO SCH ×2 (09:37→21:00)
[2021-04-27] MEDS: METFORMIN HCL 500 MG TAB PO SCH (09:37)
[2021-04-27] MEDS: INSULIN -REGULAR HUMAN 50 UNIT/0.5 ML ML SQ SCH ×4 (09:38→21:00)
[2021-04-27] MEDS ORDERED: THIAMINE HCL 100 MG TABLET ONE (09:46)
--- NOTE | 2021-04-27 12:42 | EKG ---
Test Date: 2021-04-26 Test Time: 13:28:18 Filter Press Supervisor: MACO MEASUREMENT RESULTS: Intervals: Rate: 110 WA: 142 QRSD: 94 QT: 354 QTc: 479 [place]: P: 51 WA: 142 QRS: 90 T: 17 INTERPRETIVE STATEMENTS: Sinus tachycardia Rightward axis Borderline ECG No previous ECG available for comparison Electronically Signed On 04-27-21 12:37:46 CDT by Bhupinder Plummer
[2021-04-27] MEDS: ASPIRIN EC 81 MG TAB PO SCH (18:55)
--- NOTE | 2021-04-27 18:56 | P.CNS ---
Date of Consult: 04/27/21 Reason for Consult: resp failure from COVID Primary Care Provider: Dr. Velazquez Chief Complaint: Resp failure from COVID History of Present Illness: Age 31 with metabolic synd AW resp failure. Doing better/ on high flow . Allergies No Known Allergies Allergy (Unverified 04/26/21 17:28) Home Medications: NK [No Home Meds] 04/26/21 - Past Medical/Surgical History Diabetic: Yes -: HTN -: DM -: HLD Psychosocial/ Personal History: lives at home with and son - Family History Mother Medical History: Diabetes Father Medical History: Hypertension, Liver disease - Social History Alcohol use: No CD- Drugs: No Caffeine use: Yes Place of Residence: Home Review of Systems General: Weakness Respiratory: Shortness of Breath Physical Examination Temp Pulse Resp BP Pulse Ox 98 F 110 H 20 120/70 94 04/27/21 16:00 04/27/21 16:00 04/27/21 16:00 04/27/21 16:00 04/27/21 16:00 - Problems (1) COVID Current Visit: Yes Status: Acute Plan: pt is 31 AW resp failure from COVID. Doign better/ [place] to Ncannula O2 / poss DC am CT scan consistent with covid penumonia/ poss D/c AM/Add aspirin
--- NOTE | 2021-04-27 19:01 | P.PN ---
Subjective Date of Service: 04/27/21 Primary Care Provider: Dr. Velazquez Chief Complaint: Resp failure from COVID Patient now requiring high-flow. She states her breathing is better with the high-flow oxygen on. Physical Examination - Vital Signs Temperature: 98 F Blood Pressure: 120/70 Pulse: 110 Respirations: 20 Pulse Ox (%): 94 - Physical Exam General: Alert, In no apparent distress, Oriented x3 HEENT: Mucous membr. moist/pink Neck: JVD not distended Respiratory: Other (Nonlabored breathing) Cardiovascular: No edema, Regular rate/rhythm, Normal S1 S2 Gastrointestinal: Soft and benign, Non-distended Musculoskeletal: No swelling Integumentary: No rashes Neurological: Normal strength at 5/5 x4 extr Assessment And Plan - Current Problems (Diagnosis) (1) Pneumonia due to COVID-19 virus Current Visit: Yes Status: Acute (2) Acute respiratory failure with hypoxia Current Visit: Yes Status: Acute (3) Type 2 diabetes mellitus Current Visit: Yes Status: Acute (4) Hypertension Current Visit: Yes Status: Acute - Plan Patient now requiring high-flow oxygen. Continue IV steroid. Inhalers as needed. Vitamins supplementation Zinc supplementation. Pulmonary input appreciated. Titrate oxygen. Monitor inflammatory markers.
[2021-04-27] MEDS ORDERED: D50W 25 GM/50 ML SYRINGE IV PRN (19:02)
[2021-04-27] MEDS ORDERED: GLUCAGON 1 MG/VIAL IM PRN (19:02)
[2021-04-27] MEDS ORDERED: ASPIRIN 325 MG TAB ONE (20:37)
[2021-04-27] MEDS ORDERED: BENZONATATE 100 MG CAP PO ONE (20:38)
[2021-04-27] MEDS: MELATONIN 5 MG TABLET PO SCH (21:00)
[2021-04-27] MEDS: INSULIN GLARGINE 100 UNITS/ML SQ SCH (21:00)
[2021-04-28] MEDS: METHYLPREDNISOLONE 125 MG INJ IV SCH ×3 (01:00→16:03)
[2021-04-28] MEDS ORDERED: METHYLPREDNISOLONE 125 MG INJ ONE ×3 (01:22→14:01)
[2021-04-28 04:05] LABS: Absolute Lymphocytes (CBC) 1.7 K/uL (0.7-4.9); Basophils % 0.2 % (0-1.3); Hematocrit 38.3 % (36.0-45.0); Lymphocytes % 12.3 % (15.3-44.8); MPV 9.2 fL (7.6-11.3); RBC Red Blood Cell Count 4.85 M/uL (3.86-4.86)
[2021-04-28 04:57] LABS: ALT/SGPT 53 U/L (12-78); AST/SGOT 16 U/L (15-37); Albumin 2.4 g/dL (3.4-5.0); Alkaline Phosphatase 77 U/L (45-117); BUN Blood Urea Nitrogen 14 mg/dL (7-18); Bicarbonate 26 mmol/L (21-32); Bilirubin Total 0.3 mg/dL (0.2-1.0); Ferritin 96.8 ng/mL (8-388); Glucose Level 328 mg/dL (74-106); Magnesium 2.1 mg/dL (1.8-2.4); Potassium 4.4 mmol/L (3.5-5.1); Protein, Total 6.3 g/dL (6.4-8.2); Sodium Level 140 mmol/L (136-145)
[2021-04-28] MEDS ORDERED: ASPIRIN EC 81 MG TAB PO ONE (07:42)
[2021-04-28] MEDS ORDERED: ZINC SULFATE 220 MG CAP ONE (07:42)
[2021-04-28] MEDS ORDERED: METFORMIN HCL 500 MG TAB ONE (07:42)
[2021-04-28] MEDS ORDERED: THIAMINE HCL 100 MG TABLET ONE (07:42)
[2021-04-28] MEDS ORDERED: ENOXAPARIN 40 MG/0.4 ML SQ ONE (07:43)
[2021-04-28] MEDS ORDERED: ASCORBIC ACID 500 MG TABLET ONE ×4 (07:43→21:03)
[2021-04-28] MEDS ORDERED: FAMOTIDINE 20 MG TAB ONE ×2 (07:43→20:57)
[2021-04-28] MEDS ORDERED: VITAMIN D 1000 UNIT TAB ONE (07:43)
[2021-04-28] MEDS ORDERED: INSULIN -REGULAR HUMAN 50 UNIT/0.5 ML ML ONE ×4 (08:11→21:12)
[2021-04-28] MEDS: INSULIN -REGULAR HUMAN 50 UNIT/0.5 ML ML SQ SCH ×4 (08:24→20:55)
[2021-04-28] MEDS: ASPIRIN EC 81 MG TAB PO SCH (08:25)
[2021-04-28] MEDS: VITAMIN D 1000 UNIT TAB PO SCH (08:25)
[2021-04-28] MEDS: THIAMINE HCL 100 MG TABLET PO SCH ×2 (08:25→20:58)
[2021-04-28] MEDS: ZINC SULFATE 220 MG CAP PO SCH (08:25)
[2021-04-28] MEDS: ENOXAPARIN 40 MG/0.4 ML SQ SCH (08:25)
[2021-04-28] MEDS: METFORMIN HCL 500 MG TAB PO SCH (08:26)
[2021-04-28] MEDS: ASCORBIC ACID 500 MG TABLET PO SCH ×4 (08:26→20:55)
[2021-04-28] MEDS: FAMOTIDINE 20 MG TAB PO SCH ×2 (08:26→20:55)
[2021-04-28 10:32] LABS: C-Reactive Protein 8.69 mg/L (<3.00); Ferritin 88.9 ng/mL (8-388)
[2021-04-28] MEDS: BARICITINIB 2 MG TABLET PO SCH (14:00)
--- NOTE | 2021-04-28 17:01 | P.PN ---
Subjective Date of Service: 04/28/21 Primary Care Provider: Dr. Velazquez Chief Complaint: Resp failure from COVID Patient remained dependent on high-flow oxygen. No fever. Physical Examination - Vital Signs Temperature: 96.6 F Blood Pressure: 113/81 Pulse: 70 Respirations: 20 Pulse Ox (%): 97 - Physical Exam General: Alert, In no apparent distress HEENT: Mucous membr. moist/pink Neck: JVD not distended Respiratory: Other (No labored breathing) Cardiovascular: Regular rate/rhythm, Normal S1 S2 Gastrointestinal: Soft and benign, Non-distended Musculoskeletal: No swelling Integumentary: No rashes Neurological: Normal strength at 5/5 x4 extr Assessment And Plan - Current Problems (Diagnosis) (1) Pneumonia due to COVID-19 virus Current Visit: Yes Status: Acute (2) Acute respiratory failure with hypoxia Current Visit: Yes Status: Acute (3) Type 2 diabetes mellitus Current Visit: Yes Status: Acute (4) Hypertension Current Visit: Yes Status: Acute - Plan Continue high-flow oxygen Continue IV steroid. Pulmonary input appreciated Patient started on Baricitinib Inhalers as needed. Vitamins supplementation Zinc supplementation. Pulmonary input appreciated. Titrate oxygen. Monitor inflammatory markers.
[2021-04-28] MEDS: INSULIN GLARGINE 100 UNITS/ML SQ SCH (20:54)
[2021-04-28] MEDS: MELATONIN 5 MG TABLET PO SCH (21:00)
[2021-04-28] MEDS ORDERED: INSULIN GLARGINE 100 UNITS/ML SQ ONE (21:03)
[2021-04-28] MEDS ORDERED: MELATONIN 5 MG TABLET PO ONE (21:48)
--- NOTE | 2021-04-28 22:14 | P.PN ---
Subjective Date of Service: 04/28/21 (TV) Primary Care Provider: Dr. Velazquez Chief Complaint: Resp failure from COVID Subjective: Improving (Doign better) Review of Systems General: Weakness Respiratory: Shortness of Breath Physical Examination - Vital Signs Temperature: 97.5 F Blood Pressure: 113/81 Pulse: 88 Respirations: 20 Pulse Ox (%): 94 Assessment & Plan - Problems (Diagnosis) (1) COVID Current Visit: Yes Status: Acute Plan: Doing much better on Ncannula/ Started on Barcitnib. Poss DC am/ Ivermectin/ CW pred/ improving
[2021-04-29] MEDS: METHYLPREDNISOLONE 125 MG INJ IV SCH ×3 (02:00→17:00)
[2021-04-29] MEDS ORDERED: METHYLPREDNISOLONE 40 MG INJ ONE (02:42)
[2021-04-29 06:19] LABS: C-Reactive Protein 5.03 mg/L (<3.00); Ferritin 75.4 ng/mL (8-388)
[2021-04-29] MEDS: INSULIN -REGULAR HUMAN 50 UNIT/0.5 ML ML SQ SCH ×4 (07:30→21:00)
[2021-04-29] MEDS: METFORMIN HCL 500 MG TAB PO SCH (08:00)
[2021-04-29] MEDS ORDERED: METHYLPREDNISOLONE 125 MG INJ ONE ×2 (08:15→17:25)
[2021-04-29] MEDS ORDERED: ZINC SULFATE 220 MG CAP ONE (08:16)
[2021-04-29] MEDS ORDERED: ASCORBIC ACID 500 MG TABLET ONE ×4 (08:16→21:50)
[2021-04-29] MEDS ORDERED: VITAMIN D 1000 UNIT TAB ONE (08:16)
[2021-04-29] MEDS ORDERED: METFORMIN HCL 500 MG TAB ONE (08:16)
[2021-04-29] MEDS ORDERED: ASPIRIN 81 MG CHEWABLE TABLET ONE (08:16)
[2021-04-29] MEDS ORDERED: ENOXAPARIN 40 MG/0.4 ML SQ ONE (08:17)
[2021-04-29] MEDS ORDERED: FAMOTIDINE 20 MG TAB ONE ×2 (08:17→21:50)
[2021-04-29] MEDS ORDERED: ASPIRIN EC 81 MG TAB PO ONE (08:17)
[2021-04-29] MEDS ORDERED: INSULIN -REGULAR HUMAN 50 UNIT/0.5 ML ML ONE ×4 (08:24→21:51)
[2021-04-29] MEDS: ENOXAPARIN 40 MG/0.4 ML SQ SCH (08:29)
[2021-04-29] MEDS: ASPIRIN EC 81 MG TAB PO SCH (08:29)
[2021-04-29] MEDS: ASCORBIC ACID 500 MG TABLET PO SCH ×4 (08:30→21:00)
[2021-04-29] MEDS: BARICITINIB 2 MG TABLET PO SCH (08:30)
[2021-04-29] MEDS: ZINC SULFATE 220 MG CAP PO SCH (08:30)
[2021-04-29] MEDS: FAMOTIDINE 20 MG TAB PO SCH ×2 (08:30→21:00)
[2021-04-29] MEDS: VITAMIN D 1000 UNIT TAB PO SCH (08:30)
[2021-04-29] MEDS ORDERED: IVERMECTIN 3 MG TABLET PO SCH (09:00)
[2021-04-29] MEDS: THIAMINE HCL 100 MG TABLET PO SCH ×2 (09:00→21:00)
--- NOTE | 2021-04-29 16:02 | P.PN ---
Subjective Date of Service: 04/29/21 Primary Care Provider: Dr. Velazquez Chief Complaint: Resp failure from COVID Patient respiratory status improved today. She is tolerating 5 L oxygen by nasal cannula. Physical Examination - Vital Signs Temperature: 98.1 F Blood Pressure: 118/84 Pulse: 100 Respirations: 20 Pulse Ox (%): 95 - Physical Exam General: Alert, In no apparent distress, Oriented x3 Neck: JVD not distended Respiratory: Other (Nonlabored breathing) Cardiovascular: No edema, Regular rate/rhythm Gastrointestinal: Soft and benign, Non-distended Musculoskeletal: No swelling Integumentary: No rashes Neurological: Normal strength at 5/5 x4 extr Assessment And Plan - Current Problems (Diagnosis) (1) Pneumonia due to COVID-19 virus Current Visit: Yes Status: Acute (2) Acute respiratory failure with hypoxia Current Visit: Yes Status: Acute (3) Type 2 diabetes mellitus Current Visit: Yes Status: Acute (4) Hypertension Current Visit: Yes Status: Acute - Plan Wean oxygen as tolerated. Continue IV steroid. Pulmonary is following Continue Baricitinib Inhalers as needed. Vitamins supplementation Zinc supplementation. Monitor inflammatory markers.
[2021-04-29] MEDS ORDERED: THIAMINE HCL 100 MG TABLET ONE ×2 (16:03→21:49)
[2021-04-29 16:39] VITALS: BMI 58.7
--- NOTE | 2021-04-29 20:27 | P.PN ---
Subjective Date of Service: 04/29/21 (TV) Primary Care Provider: Dr. Velazquez Chief Complaint: Resp failure from COVID Subjective: Improving (Doing better Oxygenation is stable.) Review of Systems Respiratory: Shortness of Breath Physical Examination - Vital Signs Temperature: 98.1 F Blood Pressure: 118/84 Pulse: 100 Respirations: 20 Pulse Ox (%): 95 Assessment & Plan - Problems (Diagnosis) (1) COVID Current Visit: Yes Status: Acute Plan: Doing much better/Oxygenation satisfactory/ Still SOBOE / plan for DC Am on O2 and pred / labs reviewed/ Low anticoag if possible/ prone positioning/
[2021-04-29] MEDS ORDERED: INSULIN GLARGINE 100 UNITS/ML SQ SCH (21:00)
[2021-04-29] MEDS: MELATONIN 5 MG TABLET PO SCH (21:00)
[2021-04-29] MEDS ORDERED: INSULIN GLARGINE 100 UNITS/ML SQ ONE (21:49)
[2021-04-30] MEDS: METHYLPREDNISOLONE 125 MG INJ IV SCH ×2 (01:00→08:09)
[2021-04-30] MEDS ORDERED: METHYLPREDNISOLONE 125 MG INJ ONE ×2 (01:20→07:55)
[2021-04-30 05:38] LABS: Absolute Lymphocytes (CBC) 2.1 K/uL (0.7-4.9); Basophils % 0.3 % (0-1.3); Hematocrit 39.7 % (36.0-45.0); MPV 8.5 fL (7.6-11.3); RBC Red Blood Cell Count 4.98 M/uL (3.86-4.86)
[2021-04-30 06:10] LABS: BUN Blood Urea Nitrogen 13 mg/dL (7-18); Bicarbonate 26 mmol/L (21-32); Ferritin 75.1 ng/mL (8-388); Glucose Level 221 mg/dL (74-106); Potassium 4.4 mmol/L (3.5-5.1); Sodium Level 140 mmol/L (136-145)
[2021-04-30 06:27] LABS: C-Reactive Protein < 2.90 mg/L (<3.00)
--- NOTE | 2021-04-30 06:32 | RAD REPORT ---
EXAM DESCRIPTION: RAD - Chest Single View - 04/30/2021 5:41 am CLINICAL HISTORY: resp failure COMPARISON: Chest Single View dated 04/26/2021; Chest Pa And Lat (2 Views) dated 05/19/2019 FINDINGS: Decreased lung volumes with overall similar bilateral patchy airspace disease. The heart s ize is within normal limits.No acute osseous abnormality. No significant pleural effusions or pneumot horax. IMPRESSION: Decreased lung volumes but otherwise similar bilateral patchy airspace disease concernin g for multifocal pneumonia.
[2021-04-30] MEDS ORDERED: ZINC SULFATE 220 MG CAP ONE (07:55)
[2021-04-30] MEDS ORDERED: VITAMIN D 1000 UNIT TAB ONE (07:56)
[2021-04-30] MEDS ORDERED: THIAMINE HCL 100 MG TABLET ONE (07:56)
[2021-04-30] MEDS ORDERED: METFORMIN HCL 500 MG TAB ONE (07:56)
[2021-04-30] MEDS ORDERED: ASCORBIC ACID 500 MG TABLET ONE ×2 (07:56→12:19)
[2021-04-30] MEDS ORDERED: ASPIRIN EC 81 MG TAB PO ONE (07:56)
[2021-04-30] MEDS ORDERED: FAMOTIDINE 20 MG TAB ONE (07:57)
[2021-04-30] MEDS ORDERED: ENOXAPARIN 40 MG/0.4 ML SQ ONE (07:57)
[2021-04-30] MEDS: INSULIN -REGULAR HUMAN 50 UNIT/0.5 ML ML SQ SCH ×2 (08:07→12:07)
[2021-04-30] MEDS: FAMOTIDINE 20 MG TAB PO SCH (08:08)
[2021-04-30] MEDS: VITAMIN D 1000 UNIT TAB PO SCH (08:08)
[2021-04-30] MEDS: BARICITINIB 2 MG TABLET PO SCH (08:08)
[2021-04-30] MEDS: ZINC SULFATE 220 MG CAP PO SCH (08:09)
[2021-04-30] MEDS: ASCORBIC ACID 500 MG TABLET PO SCH ×2 (08:09→12:08)
[2021-04-30] MEDS: ASPIRIN EC 81 MG TAB PO SCH (08:09)
[2021-04-30] MEDS: ENOXAPARIN 40 MG/0.4 ML SQ SCH (08:09)
[2021-04-30] MEDS: THIAMINE HCL 100 MG TABLET PO SCH (08:09)
[2021-04-30] MEDS: METFORMIN HCL 500 MG TAB PO SCH (08:09)
[2021-04-30] MEDS ORDERED: INSULIN -REGULAR HUMAN 50 UNIT/0.5 ML ML ONE ×2 (08:35→12:20)
[2021-04-30 09:49] VITALS: TEMP 97.6
--- NOTE | 2021-04-30 12:02 | P.DS ---
Admission Date: 04/26/21 Discharge Date: 04/30/21 Primary Care Provider: Dr. Velazquez Disposition: ROUTINE DISCHARGE Discharge Condition: FAIR Reason for Admission: Resp failure from COVID - Problems (1) Pneumonia due to COVID-19 virus Current Visit: Yes Status: Acute (2) Acute respiratory failure with hypoxia Current Visit: Yes Status: Acute (3) Type 2 diabetes mellitus Current Visit: Yes Status: Acute (4) Hypertension Current Visit: Yes Status: Acute Brief History of Present Illness: 31 y/o F with HTN, HLD, T2DM, non-compliant, who presented with 2 weeks of SOB. She was diagnosed with covid-19 on April 14 and was given antibiotics and steroids. She c/o worsening SOB with exertion. She was sent to ER today from PCP office due to oxygen saturation 85%. Chest x-ray demonstrated bilateral lung opacities consistent with COVID pneumonia. Patient hypoxic on room air. She was admitted for further management. Hospital Course: Patient admitted to the medical floor and started on IV steroid, vitamin supplementation and placed on oxygen by nasal cannula. Oxygen was titrated up to high-flow oxygen. Patient seen by pulmonary and started on Baracitinib. Her respiratory condition improved with treatment. Oxygen weaned down to 4 L by nasal cannula. Patient is currently ambulation with oxygen without shortness of breath. She has clinically improved and deemed stable for discharge. She is discharged with home oxygen, prednisone taper and vitamins. Of note patient was hyperglycemic with IV steroid. Blood glucose was managed with insulin sliding scale and Lantus insulin. Her hemoglobin A1c is 8.4. Patient is discharged with metformin. Vital Signs/Physical Exam: Temp Pulse Resp BP Pulse Ox 97.6 F 53 20 130/76 99 04/30/21 08:00 04/30/21 08:00 04/30/21 08:00 04/30/21 08:00 04/30/21 08:00 General: Alert, In no apparent distress, Oriented x3 Neck: JVD not distended Respiratory: Other (Nonlabored breathing) Cardiovascular: No edema, Regular rate/rhythm Gastrointestinal: Soft and benign, Non-distended Musculoskeletal: No swelling Neurological: Normal strength at 5/5 x4 extr Laboratory Data at Discharge: WBC 12.20 K/uL (4.3-10.9) H 04/30/21 05:21 Hgb 13.0 g/dL (12.0-15.0) 04/30/21 05:21 Hct 39.7 % (36.0-45.0) 04/30/21 05:21 Plt Count 475 K/uL (152-406) H 04/30/21 05:21 PT 12.7 SECONDS (9.5-12.5) H 04/26/21 13:36 INR 1.10 04/26/21 13:36 Sodium 140 mmol/L (136-145) 04/30/21 05:21 Potassium 4.4 mmol/L (3.5-5.1) 04/30/21 05:21 BUN 13 mg/dL (7-18) 04/30/21 05:21 Creatinine 0.47 mg/dL (0.55-1.3) L 04/30/21 05:21 Glucose 221 mg/dL (74-106) H 04/30/21 05:21 Magnesium 2.1 mg/dL (1.8-2.4) 04/28/21 03:03 Total Bilirubin 0.3 mg/dL (0.2-1.0) 04/28/21 03:03 AST 16 U/L (15-37) 04/28/21 03:03 ALT 53 U/L (12-78) 04/28/21 03:03 Alkaline Phosphatase 77 U/L (45-117) 04/28/21 03:03 Triglycerides 96 mg/dL (<150) 04/26/21 18:31 Cholesterol 144 mg/dL (<200) 04/26/21 18:31 HDL Cholesterol 42 mg/dL (40-60) 04/26/21 18:31 Cholesterol/HDL Ratio 3.43 04/26/21 18:31 Home Medications: Ascorbic Acid [Vitamin C*] 500 mg PO QID #120 tablet 04/30/21 Benzonatate [Tessalon Perle*] 100 mg PO TID PRN #30 cap 04/30/21 Cholecalciferol (Vitamin D3) [Vitamin D 1000 Iu Tab*] 4,000 unit PO DAILY #120 tab 04/30/21 Famotidine [Pepcid*] 40 mg PO BID #60 tab 04/30/21 Metformin HCl [Glucophage*] 500 mg PO DAILY WITH BREAKFAST #60 tab 04/30/21 Thiamine HCl [Vitamin B-1*] 100 mg PO BID #30 tablet 04/30/21 Zinc Sulfate [Zinc Sulfate*] 220 mg PO DAILY #30 cap 04/30/21 predniSONE [Deltasone] 20 mg PO BID #21 tab 04/30/21 New Medications: Metformin HCl [Glucophage*] 500 mg PO DAILY WITH BREAKFAST #60 tab Famotidine [Pepcid*] 40 mg PO BID #60 tab predniSONE [Deltasone] 20 mg PO BID #21 tab Benzonatate [Tessalon Perle*] 100 mg PO TID PRN #30 cap PRN Reason: Cough Thiamine HCl [Vitamin B-1*] 100 mg PO BID #30 tablet Ascorbic Acid [Vitamin C*] 500 mg PO QID #120 tablet Cholecalciferol (Vitamin D3) [Vitamin D 1000 Iu Tab*] 4,000 unit PO DAILY #120 tab Zinc Sulfate [Zinc Sulfate*] 220 mg PO DAILY #30 cap Diet: ADA Activity: Ad darin Followup: Jackson Stover MD [ACTIVE - CAN ADMIT] - 1 Week NONE,NONE [Primary Care Provider] - Time spent managing pt's care (in minutes): 33
[2021-04-30 12:51] VITALS: BP 128/75; O2SAT 97
== END 2021-04-30 13:30 | disposition home or self-care (01) | DRG 177 ==
LOC: ER 12:33 → ERHOLD 15:46
PROVIDERS: ADMIT Internal Medicine; ATTEND Internal Medicine
PROC: 5A09457 Assistance with Respiratory Ventilation, 24-96 Consecutive Hours, Continuous Positive Airway Pressure (ICD-10-PCS; principal; 2021-04-27)
DX: U07.1 COVID-19 (principal); J12.82 Pneumonia due to coronavirus disease 2019; J96.01 Acute respiratory failure with hypoxia; Z68.43 Body mass index [BMI] 50.0-59.9, adult; E66.01 Morbid (severe) obesity due to excess calories; E11.65 Type 2 diabetes mellitus with hyperglycemia; E78.5 Hyperlipidemia, unspecified; I10 Essential (primary) hypertension; Z91.19 Patient's noncompliance with other medical treatment and regimen; Z79.52 Long term (current) use of systemic steroids; Z79.899 Other long term (current) drug therapy; Z79.84 Long term (current) use of oral hypoglycemic drugs
CPT/HCPCS: 36415; 71045; 71275; 80048; 80053; 80061; 80076; 81003; 81025; 82728; 82947; 83036; 83605; 83735; 83880; 84145; 84484; 85025; 85379; 85610; 86140; 93005; 94002; 94003; 96374; 99285; J1100; J1650; J1815; J2920; J2930; J7030; Q9967; U0003

== ENCOUNTER 2023-06-18 17:53 | Emergency (ER) | payer BC ==
--- OUTSIDE RECORDS SUMMARY | 2023-06-18 17:56 | XMS REPORT | Continuity of Care Document ---
:[address] [facility] t Address [address] [place] [address] [place] [id number] Care Team Providers Name Role Phone Pcp, Patient Does Not Have A Primary Care Physician +[id number] SUKHJINDER PEREZ Attending Clinician Unavailable Sukhjinder Jerry Attending Clinician Unknown, Attending Attending Clinician Unavailable MAGGIE MALHOTRA Attending Clinician Unavailable Roscoe VARNISH DIPPERMaggie Attending Clinician Vinny VARNISH DIPPERTejasaycarlo Attending Clinician LEE Attending Clinician Unavailable LEE Admitting Clinician Unavailable Payers Payer Name Policy Type Policy Number Effective Date Expiration Date S ki [facility] - [id number] 2019 00:00:00 OUT OF STATE Problems Condition Condition Condition Status Onset Resolution Last Treating Co mments Source Name Details Category Date Date Treatment Clinician Date Body mass Body mass Problem Active Com mon index index Spirit (BMI) of (BMI) of - [facility] 36.0-36.9 36.0-36.9 St in adult in [facility] Sleep Sleep Problem Active Common disturbanc disturbanc Sp gris e e - CHI [facility] Essential Essential Problem Active Com mon hypertensi hypertensi Sp gris on on - CHI [facility] 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 No known No known Disease Unive rs active active ity of problems problems [facility] Allergies, Adverse Reactions, Alerts Allergy Allergy Status Severity Reaction(s) Onset Inactive Treating Comm ents Source Name Type Date Date Clinician NO KNOWN Drug Active Univers ALLERGIE Class ity of S [facility] Social History Social Habit Start Date Stop Date Quantity Comments Source Exposure to 2022-07-15 2022-07-25 Not sure [facility] SARS-CoV-2 00:00:00 20:01:00 [facility] (event) Branch Tobacco use and 2022-07-25 2022-07-25 Smokeless tobacco Un iversity of exposure 00:00:00 00:00:00 non-user [facility] Sex Ass[birth year] At [birth year] Universit y of 00:00:00 00:00:00 [facility] Smoking Status Start Date Stop Date Source Tobacco smoking consumption [facility] unknown [place] Never smoked tobacco [facility] Medications Ordered Filled Start Stop Current Ordering Indication Dosage Frequency Signature Comments Components Source Medication Medication Date Date Medication? Clinician (SIG) Name Name amoxicillin 2021-10 Yes amoxicilli Univers -clavulanat 0-11 n 875 ity of e 875-125 20:12: [place] mg per 23 um Medical tablet clavulanat [place] e 125 mg tablet Take 1 tablet every 12 hours by oral route for 7 days. Cholecalcif 2021-10 Yes cholecalci Univers emmanuel, 0-11 ferol ity of Vitamin D3, 20:12: (vitamin [place] 1,250 mcg 23 D3) 1,250 Medic al (50,000 mcg Branch unit) (50,000 capsule unit) capsule TAKE 1 CAPSULE EVERY WEEK BY ORAL ROUTE. ferrous 2021-10 Yes ferrous Univers sulfate 325 0-11 sulfate ity o f mg (65 mg 20:12: 325 mg (65 [place] iron) 23 mg iron) Medical tablet tablet Branch TAKE 1 TABLET BY MOUTH EVERY DAY fluticasone 2021-10 Yes fluticason Univers propionate 0-11 e ity of 50 20:12: propionate [place] mcg/actuati 23 50 Medical on nasal mcg/actuat Branc h spray ion nasal spray,susp ension [place] 1 spray every day by intranasal route for 10 days. loratadine 2021-10 Yes loratadine U nivers 10 mg 0-11 10 mg ity of tablet 20:12: tablet 23 Take 1 Medical tablet Branch every day by oral route for 30 days. metFORMIN 2021-10 Yes 1 tablet Univ ers 1,000 mg 0-11 with meals ity o f tablet 20:12: [place] 23 Medical Branch promethazin 2021-10 Yes 5mL 5 mL. Unive rs e-dextromet 0-11 ity of horphan 20:12: [place] 6.25-15 23 Medical mg/5 mL Branch syrup semaglutide 2021-10 Yes .5mg 0.5 mg. Uni vers (OZEMPIC) 0-11 ity of 0.25 mg or 20:12: [place] 0.5 mg(2 23 Medical mg/1.5 mL) Branch PnIj benzonatate 2021-10- No [id number] 200mg Take 1 Univers 200 mg 0-11 - capsule by ity of capsule 00:00: 04:59 mouth 3 [place] 00 :00 (three) Medical times Branch daily as needed for Cough for up to 10 days. oseltamivir 2021-10- No [id number] 75mg Take 1 Univers (TAMIFLU) 0-11 -17 capsule by ity of 75 mg 00:00: 04:59 mouth in [place] capsule 00 :00 the Medical morning Branch and 1 capsule in the evening. Do all this for 5 days. amoxicillin 2021-10 Yes TAKE 1 Univ ers -clavulanat 0-07 TABLET BY ity of e 875-125 00:00: MOUTH [place] mg per 00 EVERY 12 Medical tablet HOURS FOR Branch 7 DAYS FARXIGA 10 2021-10 Yes 10mg Take 10 mg U nivers mg tablet 0-07 by mouth ity of 00:00: daily. 00 Medical Branch famotidine 2021-10 Yes 20mg Take 20 mg U nivers 20 mg 0-07 by mouth ity of tablet 00:00: in the [place] 00 morning Medical and 20 mg Branch in the evening. metoprolol 2021-10 Yes 25mg Take 25 mg U nivers succinate 0-07 by mouth ity of XL 25 mg 24 00:00: [place] hr tablet 00 morning. Medica l Branch No known 2021-10 No No known Unive rs medications 002 medication it y of 16:00: s [address] Fluticasone Fluticasone Yes [place] 1 spray in Common Propionate Propionate 06-18 David each Sp gris 00:00: nostril - CHI 00 [facility] Ketotifen Ketotifen Yes [place] 1 drop Common Fumarate Fumarate 06-18 [facility] into Spirit 00:00: affected - CHI 00 eye [facility] Gentamicin Gentamicin Yes [place] 1 drop Common Sulfate Sulfate 06-18 [facility] into Spirit 00:00: affected - [facility]I 00 eye [facility] GNP GNP 2018- No [place] 1 tablet Common Loratadine- Loratadine- 06-18 David as needed Spirit D 12HR D 12HR 00:00: 00:00 - CHI 00 :00 [facility] Lisinopril Lisinopril Yes [place] 1 tablet Common 6-20 David Spirit 00:00: - CHI 00 [facility] Metformin Metformin Yes [place] 1 tablet Common HCl HCl David with meals Spirit - CHI [facility] Vital Signs Vital Name Observation Time Observation Value Comments Source Systolic blood 2022-07-26 01:09:00 144 mm[Hg] Univer sity of [facility] Diastolic blood 2022-07-26 01:09:00 89 mm[Hg] Unive rsity of [facility] Heart rate 2022-07-26 01:09:00 110 /min [facility] Body temperature 2022-07-26 01:09:[address] [facility] Respiratory rate 2022-07-26 01:09:00 16 /min [facility] Body height 2022-07-26 01:09:00 157.5 cm [facility] Body weight 2022-07-26 01:09:00 94.031 kg [facility] BMI 2022-07-26 01:09:00 37.92 kg/m2 [facility] Oxygen saturation in 2022-07-26 01:09:00 98 /min [facility] blood by [facility] Pulse oximetry [place] Systolic blood 2022-07-16 20:45:00 146 mm[Hg] Yaeler sity of pressure [facility] Diastolic blood 2022-07-16 20:45:00 100 mm[Hg] Unive rsity [facility] [place] [facility] Heart rate 2022-07-16 20:44:00 97 /min [facility] Body temperature 2022-07-16 20:44:[address] [facility] Respiratory rate 2022-07-16 20:44:00 18 /min [facility] Body height 2022-07-16 20:44:00 157.5 cm [facility] Body weight 2022-07-16 20:44:00 96.163 kg [facility] BMI 2022-07-16 20:44:00 38.78 kg/m2 [facility] Oxygen saturation in 2022-07-16 20:44:00 98 /min [facility] Arterial blood by [facility] Pulse oximetry [place] Procedures Procedure Date / Time Performed Performing Clinician Sourc e POCT MOLECULAR FLU 2022-07-26 01:12:00 Unknown, Attending Marisela romo [facility] POCT MOLECULAR STREP 2022-07-16 20:43:[address] [facility] Encounters Start End Encounter Admission Attending Care Care Encounter Source Date/Time Date/Time Type Type Clinicians Facility Department ID 2022-07-25 2022-07-25 Outpatient R CHRIS [facility] [id number] Univers 20:00:00 20:46:02 SUKHJINDER butler [facility] 2022-07-25 2022-07-25 Urgent Sukhjinder Perez [facility] [id number] Univers 20:00:00 20:46:02 Care Unknown, Attending [facility] [id number] Swetha [id number] Micheal as OG?BLEA [id number] [address] MEDICAL OFFICE BUILDING 2022-07-16 2022-07-16 Outpatient R ROSCOE [facility] [id number] Univers 15:40:00 16:00:09 MAGGIE ity of [facility] 2022-07-16 2022-07-16 Urgent Maggie Malhotra [facility] [id number] Univers 15:40:00 16:00:09 Care Unknown, Attending [facility] [id number] [facility]y [facility] [id number] [place] OG?BLEA [id number] [address] MEDICAL OFFICE BUILDING 2022-04-26 2022-04-26 Outpatient [facility] [address] [place] 11:45:00 11:45:00 [facility] 2018-06-18 2018-06-18 Outpatient [facility] [id number] Common 09:45:00 09:45:00 t [facility] [address] [facility] 2018-06-17 2018-06-17 Outpatient [facility] [id number] Common 09:12:00 09:12:00 t [facility] [address] [facility] 2018-05-28 2018-05-28 Outpatient [facility] [id number] Common 09:15:00 09:15:00 t [facility] [address] [facility] Results Test Description Test Time Test Comments Results Result Comments Source POCT MOLECULAR FLU 2022-07-26 01:16:23 Test Item Value Reference Range Interpretation Comme nts POCT Molecular FluA (test code = 35650-8) Positive Negative A Lab Interpretation (test code = 07663-1) [facility]normal [facility] [id number] 20:51:14 Test Item Value Reference Range Interpretation Comments POCT Molecular Strep (test code = Negative Negative 36060-4) Lab Interpretation (test code = Normal 83752-6) [facility]
--- NOTE | 2023-06-18 18:48 | RAD REPORT ---
EXAM DESCRIPTION: RAD - C Spine Ap/Lat - 06/18/2023 6:34 pm CLINICAL HISTORY: PAIN COMPARISON: No comparisons FINDINGS: No acute fracture. No malalignment. No significant focal degenerative changes. IMPRESSION: No acute osseous abnormality involving the cervical spine.
[2023-06-18] MEDS ORDERED: KETOROLAC 30 MG/ML INJ ONE (19:11)
[2023-06-18 19:18] LABS: Specific Gravity 1.022 (1.005-1.030)
[2023-06-18 19:30] LABS: Urine Bacteria <20 /HPF (<20); Urine Mucus Slight /HPF (None Seen); Urine RBC <5 /HPF (None Seen)
--- NOTE | 2023-06-18 20:04 | EDPHYS ---
Physician Documentation [facility] Name: Halina Escamilla Age: 33 yrs Sex: Female : 1990 Arrival Date: 06/18/2023 Time: 17:53 Bed 19 Private MD: ED Physician Jesus Munson HPI: 06/18 18:20 This 33 yrs old Female presents to ER via Ambulatory with complaints of cp Headache, Neck Problem. 18:20 The patient or guardian complains of pain, that is acute, tenderness, stiffness. The cp symptoms are located right side of neck. 18:20 Onset: The symptoms/episode began/occurred 3 day(s) ago. Context: The neck cp injury/problem resulted from from unknown cause. The patient complains of pain to the right side of head. The patient describes the headache as aching, constant. Associated signs and symptoms: Pertinent negatives: altered mental status, fever, paresthesias, rash, sinus congestion, sinus tenderness, vision changes, weakness. Historical: - Allergies: 18:00 No Known Allergies; ll1 - PMHx: 18:00 Hyperlipidemia; Diabetes - NIDDM; Hypertension; ll1 - PSHx: 18:00 None; ll1 - Immunization history:: Adult Immunizations up to date, Client reports receiving the 2nd dose of the Covid vaccine. - Social history:: Smoking status: Patient denies any tobacco usage or history of. ROS: 18:25 Constitutional: Negative for body aches, chills, fever, poor PO intake. cp 18:25 Eyes: Negative for injury, pain, redness, and discharge. cp 18:25 ENT: Negative for drainage from ear(s), ear pain, sore throat, difficulty swallowing, difficulty handling secretions. 18:25 Neck: Positive for pain with movement, pain at rest, stiffness, of the right side of neck, Negative for injury or acute deformity, swollen nodes, bony tenderness. 18:25 Cardiovascular: Negative for chest pain, edema, palpitations. 18:25 Respiratory: Negative for cough, shortness of breath, wheezing. 18:25 Abdomen/GI: Negative for abdominal pain, vomiting, diarrhea, constipation. 18:25 MS/extremity: Negative for injury or acute deformity, pain, paresthesias. 18:25 Neuro: Positive for headache, Negative for altered mental status, numbness, tingling, weakness. 18:25 All other systems are negative. Exam: 18:30 Constitutional: The patient appears in no acute distress, alert, awake, non-toxic, well cp developed, well nourished, uncomfortable. 18:30 Head/Face: Normocephalic, atraumatic. cp 18:30 Eyes: Periorbital structures: appear normal, Conjunctiva: normal, no exudate, no injection, Sclera: no appreciated abnormality, Lids and lashes: appear normal, bilaterally. 18:30 ENT: External ear(s): are unremarkable, Ear canal(s): are normal, clear, TM's: dullness, bilaterally, Nose: is normal, Mouth: Lips: moist, Oral mucosa: pink and intact, moist, Posterior pharynx: is normal, airway is patent, no erythema, no exudate, Voice: is normal. 18:30 Neck: ROM/movement: is normal, is supple, without pain, no meningismus, no nuchal rigidity, pain, that is moderate, with rotation to the left, with rotation to the right, limited range of motion, that is moderate, when rotating to the right, Meningeal signs: are not present, Lymph nodes: no appreciated lymphadenopathy. 18:30 Chest/axilla: Inspection: normal, Palpation: is normal, no crepitus, no tenderness. 18:30 Cardiovascular: Rate: tachycardic, Rhythm: regular. 18:30 Respiratory: the patient does not display signs of respiratory distress, Respirations: normal, no use of accessory muscles, no retractions, labored breathing, is not present, Breath sounds: are clear throughout, no decreased breath sounds, no stridor, no wheezing. 18:30 Abdomen/GI: Inspection: abdomen appears normal, Palpation: abdomen is soft and non-tender, in all quadrants. 18:30 Back: pain, is absent, ROM is normal. 18:30 Skin: cellulitis, is not appreciated, no rash present. 18:30 Neuro: Orientation: to person, place \T\ time. Mentation: is normal, Motor: moves all fours, strength is normal, Sensation: is normal, Gait: is steady, at a normal pace, without difficulty. Vital Signs: 18:01 BP 156 / 96; Pulse 102; Resp 16; Temp 97.6; Pulse Ox 100% ; Weight 95.25 kg; Height 5 ll1 ft. 2 in. ; Pain 6/10; 20:00 BP 146 / 93; Pulse 79; Resp 18; Pulse Ox 100% on R/A; pf1 18:01 Body Mass Index 38.41 (95.25 kg, 157.48 cm) ll1 18:01 Pain Scale: Adult ll1 MDM: 18:10 Patient medically screened. cp 20:03 Data reviewed: vital signs, nurses notes, radiologic studies, plain films. cp 20:03 Differential diagnosis: Cervical Disc Herniation meningitis, migraine, tension cp headache. I considered the following discharge prescriptions or medication management in the emergency department Medications were administered in the Emergency Department. See MAR. 20:03 Counseling: I had a detailed discussion with the patient and/or guardian regarding the cp historical points, exam findings, and any diagnostic results supporting the discharge/admit diagnosis, radiology results, the need for outpatient follow up, a family practitioner, to return to the emergency department if symptoms worsen or persist or if there are any questions or concerns that arise at home. 20:03 Response to treatment: the patient's symptoms have markedly improved after treatment, cp and as a result, I will discharge patient. 06/18 18:17 Order name: Urine Microscopic Only; Complete Time: 19:52 cp 06/18 18:17 Order name: PREGU; Complete Time: 19:52 cp 06/18 18:17 Order name: XRAY C Spine Ap/lat; Complete Time: 19:52 cp Administered Medications: 19:12 Drug: Ketorolac IM 30 mg Route: IM; Site: right deltoid; ph 19:12 Follow up: Response: No adverse reaction ph 20:00 Follow up: Response: No adverse reaction; Marked relief of symptoms; Pain is decreased pf1 Disposition Summary: 06/18/23 20:04 Discharge Ordered Location: Home cp Problem: new cp Symptoms: have improved cp Condition: Stable cp Diagnosis - Cervicalgia cp Followup: cp - With: Private Physician - When: 2 - 3 days - Reason: Worsening of condition Discharge Instructions: - Discharge Summary Sheet cp - Heat Therapy cp - Neck Exercises cp Forms: - Medication Reconciliation Form cp - Thank You Letter cp - Antibiotic Education cp - Prescription Opioid Use cp - Patient Portal Instructions cp - Leadership Thank You Letter cp Prescriptions: - Baclofen 10 mg Oral Tablet - take 1 tablet by ORAL route 3 times per day; 20 tablet; Refills: 0, Product cp Selection Permitted - Diclofenac Sodium 75 mg Oral Tablet Sustained Release - take 1 tablet by ORAL route 2 times per day; 30 tablet; Refills: 0, Product cp Selection Permitted - Medrol ([place]) 4 mg Oral Tablets, Dose Pack - take 1 tablet by ORAL route as directed - follow package instructions; 1 cp packet; Refills: 0, Product Selection Permitted Addendum: 06/20/2023 23:29 Co-signature as Attending Physician, Jesus Munson MD I agree with the assessment s p4 and plan of care. I reviewed the patient's care provided by the Advanced Practice Provider and agree with the diagnosis and treatment plan. Signatures: Dispatcher [employer] Jessa Dumont, RN RN Devyn Albrecht PA PA cp Lewis, Lynsay, RN RN ll1 Jesus Munson MD MD sp4 Sonja Perales RN pf1
--- NOTE | 2023-06-18 20:04 | ER ---
Nurse's Notes [facility] Name: Halina Escamilla Age: 33 yrs Sex: Female : 1990 Arrival Date: 06/18/2023 Time: 17:53 Bed 19 Private MD: Diagnosis: Cervicalgia Presentation: 06/18 18:00 Chief complaint:. Coronavirus screen: Client denies travel out of the [place] in the last ll1 14 days. At this time, the client does not indicate any symptoms associated with coronavirus-19. Ebola Screen: Patient denies travel to an Ebola-affected area in the 21 days before illness onset. 18:00 Method Of Arrival: Ambulatory ll1 18:01 Coronavirus screen: Vaccine status: Patient reports receiving the 2nd dose of the covid ll1 vaccine. Initial Sepsis Screen: Does the patient meet any 2 criteria? HR > 90 bpm. No. Patient's initial sepsis screen is negative. Does the patient have a suspected source of infection? No. Patient's initial sepsis screen is negative. Risk Assessment: Do you want to hurt yourself or someone else? Patient reports no desire to harm self or others. Onset of symptoms was June 16, 2023. 18:01 Acuity: RADHA 3 ll1 18:02 Chief complaint: Patient states: R sided neck pain for 2-3 days getting slowly worse. ll1 No fever. No trauma. Triage Assessment: 18:05 General: Appears uncomfortable, Behavior is calm, cooperative, appropriate for age. ll1 Pain: Complains of pain in R neck Quality of pain is described as aching. Neuro: Reports headache. Musculoskeletal: Reports pain in R side of neck. Historical: - Allergies: 18:00 No Known Allergies; ll1 - PMHx: 18:00 Hyperlipidemia; Diabetes - NIDDM; Hypertension; ll1 - PSHx: 18:00 None; ll1 - Immunization history:: Adult Immunizations up to date, Client reports receiving the 2nd dose of the Covid vaccine. - Social history:: Smoking status: Patient denies any tobacco usage or history of. Screenin:12 [facility] ED Fall Risk Assessment (Adult) History of falling in the last 3 months, ph including since admission No falls in past 3 months (0 pts) Confusion or Disorientation No (0 pts) Intoxicated or Sedated No (0 pts) Impaired Gait No (0 pts) Mobility Assist Device Used No (0 pt) Altered Elimination No (0 pt) Score/Fall Risk Level 0 - 2 = Low Risk Oriented to surroundings, Maintained a safe environment, Hourly rounding (assess needs \T\ fall precautionary measures) done, Used ambulatory aids as needed (educated on \T\ assisted with). Abuse screen: Denies threats or abuse. Denies injuries from another. Nutritional screening: No deficits noted. Tuberculosis screening: No symptoms or risk factors identified. Assessment: 19:11 General: Appears in no apparent distress. uncomfortable, Behavior is calm, cooperative, ph appropriate for age. Pain: Complains of pain in base of the skull. Neuro: Level of Consciousness is awake, alert, obeys commands, Oriented to person, place, time, situation, Reports headache. Cardiovascular: Capillary refill < 3 seconds in bilateral fingers Patient's skin is warm and dry. Respiratory: Airway is patent Respiratory effort is even, unlabored, Respiratory pattern is regular, symmetrical. Derm: Skin is pink, warm \T\ dry. 19:36 Reassessment: Patient appears in no apparent distress at this time. No changes from jw7 previously documented assessment. Patient and/or family updated on plan of care and expected duration. Pain level reassessed. Patient is alert, oriented x 3, equal unlabored respirations, skin warm/dry/pink. Vital Signs: 18:01 BP 156 / 96; Pulse 102; Resp 16; Temp 97.6; Pulse Ox 100% ; Weight 95.25 kg; Height 5 ll1 ft. 2 in. ; Pain 6/10; 20:00 BP 146 / 93; Pulse 79; Resp 18; Pulse Ox 100% on R/A; pf1 18:01 Body Mass Index 38.41 (95.25 kg, 157.48 cm) ll1 18:01 Pain Scale: Adult ll1 ED Course: 17:57 Patient arrived in ED. ts1 17:58 Devyn Cruz PA is PHCP. cp 17:58 Jesus Munson MD is Attending Physician. cp 18:00 Arm band placed on. ll1 18:01 Triage completed. ll1 18:36 XRAY C Spine Ap/lat In Process Unspecified. EDMS 18:53 Jessa Grant, RN is Primary Nurse. ph 19:12 Patient has correct armband on for positive identification. Pulse ox on. NIBP on. ph 19:13 No provider procedures requiring assistance completed. Patient did not have IV access ph during this emergency room visit. 20:20 Provided Education on: medication administration. pf1 Administered Medications: 19:12 Drug: Ketorolac IM 30 mg Route: IM; Site: right deltoid; ph 19:12 Follow up: Response: No adverse reaction ph 20:00 Follow up: Response: No adverse reaction; Marked relief of symptoms; Pain is decreased pf1 Medication: 19:12 VIS not applicable for this client. ph Outcome: 20:04 Discharge ordered by . sreekanth 20:24 Discharged to home ambulatory. jw7 20:24 Condition: improved 20:24 Discharge instructions given to patient, Instructed on discharge instructions, follow up and referral plans. Demonstrated understanding of instructions, follow-up care, medications, Prescriptions given X 3. 20:25 Patient left the ED. jw7 Signatures: Dispatcher [employer] EDMS Jessa Grant RN RN ph Devyn Cruz PA PA cp Lewis, Lynsay, RN RN ll1 Rosa Elena Harris RN RN jw7 Sonja Perales RN RN pf1 Amanda Espinosa, PAS PAS ts1
[2023-06-18 21:04] VITALS: BP 156/96; TEMP 97.6; O2SAT 100
== END 2023-06-18 20:25 | disposition home or self-care (01) ==
LOC: ER 17:53
DX: M54.2 Cervicalgia (principal); R51.9 Headache, unspecified; I10 Essential (primary) hypertension
CPT/HCPCS: 72040; 81015; 81025; 96372; 99284

== ENCOUNTER 2023-08-21 11:37 | Emergency (ER) | payer BC ==
--- OUTSIDE RECORDS SUMMARY | 2023-08-21 11:40 | XMS REPORT | Continuity of Care Document ---
:1990 Author Organization [facility] t Address [address] [place] [address] [place] [id number] Care Team Providers Name Role Phone PCP, PATIENT DOES NOT HAVE A Primary Care Physician Unavaila ble GINNY_GCBZW_Kalindayala_S Attending Clinician Unavailable SUKHJINDER PEREZ Attending Clinician Unavailable Nathalie COMMERCIAL LENDING VICE PRESIDENTSukhjinder Nguyễn Attending Clinician Unknown, Attending Attending Clinician Unavailable MAGGIE MALHOTRA Attending Clinician Unavailable Maggie Reaves Attending Clinician Toby Diaz Attending Clinician LEE Attending Clinician Unavailable GINNY_GCBZW_Maria Teresaa_S Admitting Clinician Unavailable LEE Admitting Clinician Unavailable Payers Payer Name Policy Type Policy Number Effective Date Expiration Date [facility] - [id number] 2019 00:00:00 OUT OF STATE Problems Condition Condition Condition Status Onset Resolution Last Treating Co mments Source Name Details Category Date Date Treatment Clinician Date Body mass Body mass Problem Active Com mon index index Spirit (BMI) of (BMI) of - [facility] 36.0-36.9 36.0-36.9 St in adult in [facility] Sleep Sleep Problem Active Common disturbanc disturbanc Sp gris e e - [facility] Essential Essential Problem Active Com mon hypertensi hypertensi Sp gris on on - [facility] 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 No known No known Disease Unive rs active active ity of problems problems [facility] Allergies, Adverse Reactions, Alerts Allergy Allergy Status Severity Reaction(s) Onset Inactive Treating Comm ents Source Name Type Date Date Clinician NO KNOWN Drug Active Univers ALLERGIE Class ity of S [facility] Social History Social Habit Start Date Stop Date Quantity Comments Source Exposure to 2022-07-15 2022-07-25 Not sure [facility] SARS-CoV-2 00:00:00 20:01:00 [facility] (event) [place] Tobacco use and 2022-07-25 2022-07-25 Smokeless tobacco Un iversity of exposure 00:00:00 00:00:00 non-user [facility] Sex Assigned At [birth year] Universit y of 00:00:00 00:00:00 [facility] Smoking Status Start Date Stop Date Source Tobacco smoking consumption Univ [facility] Never smoked tobacco [facility] Medications Ordered Filled Start Stop Current Ordering Indication Dosage Frequency Signature Comments Components Source Medication Medication Date Date Medication? Clinician (SIG) Name Name amoxicillin 2021-10 Yes amoxicilli Univers -clavulanat 0-11 n 875 ity of e 875-125 20:12[place] per 23 um Medical tablet clavulanat [place] e 125 mg tablet Take 1 tablet [...] Branc h spray ion nasal spray,susp ension Estelline 1 spray every day by intranasal route for 10 days. loratadine 2021-10 Yes loratadine U nivers 10 mg 0-11 10 mg ity of tablet 20:12: tablet [place] 23 Take 1 Medical tablet Branch every [...] mg/1.5 mL) Branch PnIj benzonatate 2021-10- No [id number] 200mg Take 1 Univers 200 mg 0-11 10-22 capsule by ity of capsule 00:00: 04:59 mouth 3 [place] 00 :00 (three) Medical times Branch daily as needed for Cough for up to 10 days. oseltamivir 2021-10- No [id number] 75mg Take 1 Univers (TAMIFLU) 0-11 10-17 capsule by ity of 75 mg 00:00: [...] 0-07 by mouth ity of 00:00: daily. [place] 00 Medical Branch famotidine 2021-10 Yes 20mg [...] 2021-10 No No known Unive rs medications 0 medication it y of 16:00: s [address] Fluticasone Fluticasone Yes [place] 1 spray in Common Propionate Propionate 06-18 David each Sp gris 00:00: nostril - CHI 00 [facility] Ketotifen Ketotifen Yes [place] 1 drop Common Fumarate Fumarate 06-18 David into Spirit 00:00: affected - CHI 00 eye [facility] Gentamicin Gentamicin Yes [place] 1 drop Common Sulfate Sulfate 06-18 David into Spirit 00:00: affected - [facility]I 00 eye [facility] GNP GNP 2018- No [place] 1 tablet Common Loratadine- Loratadine- 06-18 09-19 David as needed Spirit D 12HR D 12HR 00:00: 00:00 - CHI 00 :00 [facility] Lisinopril Lisinopril Yes [place] 1 tablet Common 6-20 David Spirit 00:00: - CHI 00 [facility] Metformin Metformin Yes [place] 1 tablet Common HCl HCl David with meals Spirit - CHI [facility] Vital Signs Vital Name Observation Time Observation Value Comments Source Systolic blood 2022-07-26 01:09:00 144 mm[Hg] Univer sity of pressure [facility] Diastolic blood 2022-07-26 01:09:00 89 mm[Hg] Unive rsity [facility] Heart rate 2022-07-26 01:09:00 110 /min [facility] Body temperature 2022-07-26 01:09:[address] [facility] Res[facility] rate 2022-07-26 01:09:00 16 /min [facility] Body height 2022-07-26 01:09:00 157.5 cm [facility] Body weight 2022-07-26 01:09:00 94.031 kg [facility] BMI 2022-07-26 01:09:00 37.92 kg/m2 [facility] Oxygen saturation in 2022-07-26 01:09:00 98 /min University of Arterial blood by [facility] Pulse oximetry Branch Systolic blood 2022-07-16 20:45:00 146 mm[Hg] Univer sity of [facility] Diastolic blood 2022-07-16 20:45:00 100 mm[Hg] [facility] Heart rate 2022-07-16 20:44:00 97 /min [facility] Body temperature 2022-07-16 20:44:[address] [facility] Respiratory rate 2022-07-16 20:44:00 18 /min [facility] Body height 2022-07-16 20:44:00 157.5 cm [facility] Body weight 2022-07-16 20:44:00 96.163 kg [facility] BMI 2022-07-16 20:44:00 38.78 kg/m2 [facility] Oxygen saturation in 2022-07-16 20:44:00 98 /min [facility] Arterial blood by [facility] Pulse oximetry [place] Procedures Procedure Date / Time Performed Performing Clinician Sourc e POCT MOLECULAR FLU 2022-07-26 01:12:00 Unknown, Attending [facility] POCT MOLECULAR STREP 2022-07-16 20:43:00 Toby Casillas [facility] Encounters Start End Encounter Admission Attending Care Care Encounter Source Date/Time Date/Time Type Type Clinicians Facility Department ID 2023-08-12 2023-08-12 Outpatient GC_[id number] PRIV PRIV [id number] [facility] 00:00:00 00:00:00 diyala_S [id number] Medic al 2023-07-30 2023-07-30 Outpatient R [facility] [id number] Univers 16:20:00 16:20:00 ity [facility] 2022-07-25 2022-07-25 Outpatient R NATHALIE, [facility] [id number] Univers 20:00:00 20:46:02 SUKHJINDER butler [facility] 2022-07-25 2022-07-25 Urgent Sukhjinder Perez [facility] [id number] Univers 20:00:00 20:46:02 Care Unknown, Attending [place] [id number] [facility] [id number] Micheal as OG?BLEA [id number] Ma sherry [address] OFFICE [facility] 2022-07-16 2022-07-16 Outpatient Ebony ROSCOE [facility] [id number] Univers 15:40:00 16:00:09 MAGGIE [facility] 2022-07-16 2022-07-16 Urgent Maggie Malhotra [facility] [id number] Univers 15:40:00 16:00:09 Care Unknown, Attending [place] [id number] [facility] Toby Casillas [place] [id number] [place] OG?BLEA [id number] Ma sherry [address] 2022-04-26 2022-04-[address] [facility] [address] [place] 11:45:00 11:45:00 [facility] 0713 [facility] 2018-06-18 2018-06-18 [facility] [id number] Common 09:45:00 09:45:[address] [facility] [address] [facility] 2018-06-17 2018-06-17 [facility] [id number] Common 09:12:00 09:12:[address] [facility] [address] [facility] 2018-05-28 2018-05-28 [facility] [id number] Common 09:15:00 09:15:[address] [facility] Results Test Description Test Time Test Comments Results Result Comments Source POCT MOLECULAR FLU 2022-07-26 01:16:23 Test Item Value Reference Range Interpretation Comme nts POCT Molecular FluA (test code = 26756-4) Positive Negative A Lab Interpretation (test code = 06797-4) [facility] [id number] 20:51:14 Test Item Value Reference Range Interpretation Comments POCT Molecular Strep (test code = Negative Negative 05457-8) Lab Interpretation (test code = Normal 26087-4) [facility]
[2023-08-21] MEDS ORDERED: KETOROLAC 30 MG/ML INJ ONE (12:19)
[2023-08-21] MEDS ORDERED: AMOX/K CLAV 875 MG TAB ONE (12:19)
--- NOTE | 2023-08-21 12:26 | RAD REPORT ---
EXAM DESCRIPTION: CT - Head Brain Wo Cont - 08/21/2023 12:18 pm CLINICAL HISTORY: Headache COMPARISON: none TECHNIQUE: Computed axial tomography of the head was obtained. IV contrast was not requested. All CT scans are performed using dose optimization technique as appropriate and may include automated exposure control or mA/KV adjustment according to patient size. FINDINGS: An intracranial bleed is not seen The ventricles are normal in caliber Small low-density area right cerebellar vermis No extra-axial fluid collection is noted. Fluid within the sinuses/ mastoids is not seen IMPRESSION: Small low-density area right cerebellar vermis may represent artifact or a small infarct . If clinically indicated further evaluation with MRI could be obtained
--- NOTE | 2023-08-21 12:38 | ER ---
Nurse's Notes [facility] Name: Halina Escamilla Age: 33 yrs Sex: Female : 1990 Arrival Date: 08/21/2023 Time: 11:37 Bed 19 Private MD: Diagnosis: Localized enlarged lymph nodes-occipital Presentation: 08/21 11:52 Chief complaint: Patient states: Pain behind ENDER ears X 1 month. Developed knots behind ld1 ears 1 week ago. Coronavirus screen: At this time, the client does not indicate any symptoms associated with coronavirus-19. Ebola Screen: No symptoms or risks identified at this time. Initial Sepsis Screen: Does the patient meet any 2 criteria? No. Patient's initial sepsis screen is negative. Does the patient have a suspected source of infection? No. Patient's initial sepsis screen is negative. Risk Assessment: Do you want to hurt yourself or someone else? Patient reports no desire to harm self or others. Onset of symptoms was August 21, 2023. 11:52 Method Of Arrival: Ambulatory ld1 11:52 Acuity: RADHA 3 ld1 Triage Assessment: 11:52 Headache History: The patient has had previous headaches and this one is similar to ld1 previous episodes. General: Appears in no apparent distress. comfortable, Behavior is calm, cooperative, appropriate for age. Pain: Complains of pain in right ear and left ear Pain does not radiate. Pain currently is 7 out of 10 on a pain scale. Quality of pain is described as throbbing, Pain began 1 month. Pain: Also complains of no other associated symptoms. EENT: Reports pain in right ear and left ear. Neuro: Level of Consciousness is awake, alert, obeys commands, Oriented to person, place, time, situation. Cardiovascular: Capillary refill < 3 seconds Patient's skin is warm and dry. Respiratory: Airway is patent Respiratory effort is even, unlabored. GI: Abdomen is round non-distended. : No signs and/or symptoms were reported regarding the genitourinary system. Derm: No signs and/or symptoms reported regarding the dermatologic system. Musculoskeletal: No signs and/or symptoms reported regarding the musculoskeletal system. Historical: - Allergies: 11:51 No Known Allergies; ld1 - PMHx: 11:51 Diabetes - NIDDM; Hyperlipidemia; Hypertension; ld1 - PSHx: 11:51 None; ld1 - Immunization history:: Adult Immunizations up to date. - Social history:: Smoking status: Patient denies any tobacco usage or history of. Patient/guardian denies using alcohol. Screenin:04 [facility] ED Fall Risk Assessment (Adult) History of falling in the last 3 months, kd3 including since admission No falls in past 3 months (0 pts) Confusion or Disorientation No (0 pts) Intoxicated or Sedated No (0 pts) Impaired Gait No (0 pts) Mobility Assist Device Used No (0 pt) Altered Elimination No (0 pt) Score/Fall Risk Level 0 - 2 = Low Risk Maintained a safe environment. Abuse screen: Denies threats or abuse. Denies injuries from another. Nutritional screening: No deficits noted. Tuberculosis screening: No symptoms or risk factors identified. Assessment: 12:03 General: Appears in no apparent distress. Behavior is calm, cooperative. Pain: kd3 Complains of pain in neck and left ear and right ear. Neuro: Level of Consciousness is awake, alert, obeys commands, Oriented to person, place, time, situation. Cardiovascular: Patient's skin is warm and dry. Respiratory: Airway is patent Trachea midline Respiratory effort is even, unlabored, Respiratory pattern is regular, symmetrical. Vital Signs: 11:52 BP 134 / 93; Pulse 95; Resp 18; Temp 98.6(TE); Pulse Ox 98% on R/A; Weight 92.08 kg; ld1 Height 5 ft. 3 in. ; Pain 7/10; 11:52 Body Mass Index 35.96 (92.08 kg, 160.02 cm) ld1 11:52 Pain Scale: Adult ld1 Alyse Coma Score: 12:40 Eye Response: spontaneous(4). Motor Response: obeys commands(6). Verbal Response: snw oriented(5). Total: 15. ED Course: 11:43 Patient arrived in ED. mg5 11:47 Shanita Vinson FNP-C is PHCP. snw 11:47 Eleni Gongora MD is Attending Physician. snw 11:52 Arm band placed on right wrist. ld1 11:53 Triage completed. ld1 12:03 Jocelin Vallejo, RADHA is Primary Nurse. kd3 12:04 Patient has correct armband on for positive identification. Provided Education on: Ct kd3 scan . 12:19 CT Head Brain wo Cont In Process Unspecified. EDMS 12:46 No provider procedures requiring assistance completed. Patient did not have IV access hb during this emergency room visit. Administered Medications: 12:11 Drug: Ketorolac IM 30 mg IM once Route: IM; Site: left gluteus; kd3 12:11 Drug: Amoxicillin-Clavulanate PO 875 mg PO once Route: PO; kd3 Medication: 12:03 VIS not applicable for this client. kd3 Outcome: 12:38 Discharge ordered by . snsowmya 12:46 Discharged to home ambulatory, with family, 12:46 Condition: stable 12:46 Discharge instructions given to patient, Instructed on discharge instructions, follow up and referral plans. medication usage, Demonstrated understanding of instructions, follow-up care, medications, Prescriptions given X 2, 12:47 Patient left the ED. hb Signatures: Dispatcher [employer] EDMS Shanita Vinson, BIN PACKER-C BIN PACKER-Csnw Yvonne Meyer RN RN Neema Askew RN RN ld1 Jocelin Vallejo RN RN kd3 Ruby Schafer mg5
--- NOTE | 2023-08-21 12:38 | EDPHYS ---
Physician Documentation [facility] Name: Halina Escamilla Age: 33 yrs Sex: Female : 1990 Arrival Date: 08/21/2023 Time: 11:37 Bed 19 Private MD: ED Physician Eleni Gongora HPI: 08/21 12:41 This 33 yrs old Female presents to ER via Ambulatory with complaints of snw Headache, Neck Problem. 12:41 This 33 yrs old Female presents to ER via Ambulatory with complaints of snw swollen lymph nodes. 12:42 Onset: The symptoms/episode began/occurred 1 month(s) ago, and became persistent. snw Severity of symptoms: At their worst the symptoms were moderate in the emergency department the symptoms are unchanged. It is unknown whether or not the patient has had similar symptoms in the past. The patient has not recently seen a physician. Historical: - Allergies: 11:51 No Known Allergies; ld1 - PMHx: 11:51 Diabetes - NIDDM; Hyperlipidemia; Hypertension; ld1 - PSHx: 11:51 None; ld1 - Immunization history:: Adult Immunizations up to date. - Social history:: Smoking status: Patient denies any tobacco usage or history of. Patient/guardian denies using alcohol. ROS: 12:42 Constitutional: Negative for fever, chills, and weight loss, Eyes: Negative for injury, snw pain, redness, and discharge, ENT: Negative for injury, pain, and discharge, right TMJ area tender around to right posterior ear. + tender, swollen bilateral occipital lymph nodes Neck: Negative for injury, pain, and swelling, Cardiovascular: Negative for chest pain, palpitations, and edema, Respiratory: Negative for shortness of breath, cough, wheezing, and pleuritic chest pain, Abdomen/GI: Negative for abdominal pain, nausea, vomiting, diarrhea, and constipation, Back: Negative for injury and pain, : Negative for injury, bleeding, discharge, and swelling, MS/Extremity: Negative for injury and deformity, Skin: Negative for injury, rash, and discoloration, Psych: Negative for depression, anxiety, suicide ideation, homicidal ideation, and hallucinations, 12:42 Neuro: Positive for headache, Exam: 12:42 Constitutional: This is a well developed, well nourished patient who is awake, alert, snw and in no acute distress. Eyes: Pupils equal round and reactive to light, extra-ocular motions intact. Lids and lashes normal. Conjunctiva and sclera are non-icteric and not injected. Cornea within normal limits. Periorbital areas with no swelling, redness, or edema. ENT: Nares patent. No nasal discharge, no septal abnormalities noted. Tympanic membranes are normal and external auditory canals are clear. Oropharynx with no redness, swelling, or masses, exudates, or evidence of obstruction, uvula midline. Mucous membranes moist. Neck: Trachea midline, no thyromegaly or masses palpated, and no cervical lymphadenopathy. Supple, full range of motion without nuchal rigidity, or vertebral point tenderness. No Meningismus. Chest/axilla: Normal chest wall appearance and motion. Nontender with no deformity. No lesions are appreciated. Cardiovascular: Regular rate and rhythm with a normal S1 and S2. No gallops, murmurs, or rubs. Normal PMI, no JVD. No pulse deficits. Respiratory: Lungs have equal breath sounds bilaterally, clear to auscultation and percussion. No rales, rhonchi or wheezes noted. No increased work of breathing, no retractions or nasal flaring. Abdomen/GI: Soft, non-tender, with normal bowel sounds. No distension or tympany. No guarding or rebound. No evidence of tenderness throughout. Back: No spinal tenderness. No costovertebral tenderness. Full range of motion. Skin: Warm, dry with normal turgor. Normal color with no rashes, no lesions, and no evidence of cellulitis. MS/ Extremity: Pulses equal, no cyanosis. Neurovascular intact. Full, normal range of motion. Neuro: Awake and alert, GCS 15, oriented to person, place, time, and situation. Cranial nerves II-XII grossly intact. Motor strength 5/5 in all extremities. Sensory grossly intact. Cerebellar exam normal. Normal gait. Psych: Awake, alert, with orientation to person, place and time. Behavior, mood, and affect are within normal limits. 12:42 Head/face: Noted is swelling, tenderness, that is moderate, that is severe, of the bilateral, (right greater than left), occipital lymph nodes, Vital Signs: 11:52 BP 134 / 93; Pulse 95; Resp 18; Temp 98.6(TE); Pulse Ox 98% on R/A; Weight 92.08 kg; ld1 Height 5 ft. 3 in. ; Pain 7/10; 11:52 Body Mass Index 35.96 (92.08 kg, 160.02 cm) ld1 11:52 Pain Scale: Adult ld1 Streetman Coma Score: 12:40 Eye Response: spontaneous(4). Motor Response: obeys commands(6). Verbal Response: snw oriented(5). Total: 15. MDM: 11:54 Patient medically screened. snw 12:40 Differential diagnosis: otitis, sinusitis, Mastoiditis. Data reviewed: vital signs, snw nurses notes, radiologic studies, CT scan. Counseling: I had a detailed discussion with the patient and/or guardian regarding the historical points, exam findings, and any diagnostic results supporting the discharge/admit diagnosis, radiology results, the need for outpatient follow up, to return to the emergency department if symptoms worsen or persist or if there are any questions or concerns that arise at home. Special discussion: I have referred the patient to see his PCP for further evaluation of high blood pressure. Based on the history and exam findings, there is no indication for further emergent testing or inpatient evaluation. I discussed with the patient/guardian the need to see the ENT specialist for further evaluation of the symptoms. I discussed with the patient/guardian the need to see the neurologist for further evaluation of the symptoms. I discussed with the patient/guardian the need to see the primary care provider for further evaluation of the symptoms. 12:45 Response to treatment: the patient's symptoms have mildly improved after treatment. snw 08/21 12:02 Order name: CT Head Brain wo Cont; Complete Time: 12:29 snw Administered Medications: 12:11 Drug: Ketorolac IM 30 mg IM once Route: IM; Site: left gluteus; kd3 12:11 Drug: Amoxicillin-Clavulanate PO 875 mg PO once Route: PO; kd3 Disposition Summary: 08/21/23 12:38 Discharge Ordered Notes: Location: Home snw Condition: Stable snw Diagnosis - Localized enlarged lymph nodes - occipital snw Followup: snw - With: Emergency Department - When: As needed - Reason: Worsening of condition Followup: snw - With: Private Physician - When: 7 - 10 days - Reason: Recheck today's complaints, Continuance of care, Re-evaluation by your physician Discharge Instructions: - Lymphadenopathy snw - Discharge Summary Sheet jl7 Forms: - Medication Reconciliation Form snw - Thank You Letter snw - Antibiotic Education snw - Prescription Opioid Use snw - Patient Portal Instructions snw - Leadership Thank You Letter snw - Work release form jl7 Prescriptions: - cefdinir 300 mg Oral capsule - take 2 capsule ORAL route daily for 21 days; 42 capsule; Refills: 0, Product snw Selection Permitted - Mobic 7.5 mg Oral Tablet - take 1 tablet ORAL route once daily take with food; 20 tablet; Refills: 0, snw Product Selection Permitted Signatures: Dispatcher [employer] EDMS Shanita Vinson FNP-C [facility] Neema Askew, RN RN ld1 Jocelin Vallejo RN RN kd3
[2023-08-21 12:52] VITALS: BP 134/93; TEMP 98.6; O2SAT 98
== END 2023-08-21 12:47 | disposition home or self-care (01) ==
LOC: ER 11:37
DX: R59.0 Localized enlarged lymph nodes (principal); R51.9 Headache, unspecified
CPT/HCPCS: 70450; 96372; 99284